=== PATIENT | female | born 1960 | race African-American/Black ===

== ENCOUNTER 2019-05-24 12:41 | Outpatient (CLI) | payer OTHER, SELFPAY ==
[2019-05-24 13:58] LABS: Blood Urea Nitrogen 15 mg/dL (7-17); Calcium 8.5 mg/dL (8.4-10.2); Carbon Dioxide 26 mmol/L (22-30); Chloride 96 mmol/L (98-107); Estimated Glomerular Filt Rate > 60; Glucose 454 mg/dL (65-105); Magnesium 1.8 mg/dL (1.6-2.3); Potassium 3.8 mmol/L (3.4-5.0); Sodium 131 mmol/L (137-145)
== END 2019-05-24 12:42 | disposition home or self-care (01) ==
PROVIDERS: PCP Internal Medicine Infectious Disease; Visit Provider Internal Medicine Cardiovascular Disease
DX: R60.0 Localized edema (principal)
CPT/HCPCS: 36415; 80048; 83735

== ENCOUNTER 2019-07-05 14:30 | Outpatient (RCR) | payer OTHER, SELFPAY ==
--- NOTE | 2019-04-13 08:25 | PTOPEVAL ---
Thank you for referring this patient to [facility]. Please review, sign, date and return this plan of care SHIRA. Pt referred to therapy due to knee pain and decreased functional mobility. She demonstrates significant limitations with transfers, ambulation, endurance and LE strength. She requires additional skilled therapy to address impairments. Cont PT 2x/wk x 8 wk to improve function and achieve goals. I agree with and certify that the following plan of care is medically necessary. Referring Physician Date Attending Provider: PHYSICIAN NOT ON STAFF Referring Provider: Dr. Bharath Latham MD *PT Outpatient Evaluation Start: 04/12/19 14:16 Freq: Status: Active Protocol: Document 04/12/19 14:13 CAP (Rec: 04/12/19 15:25 CAP [id number]) Therapy Assessment Status Assessment Status Assessment Status Evaluation Outpatient Past Medical History Cardiovascular History Hx Hypertension Yes Respiratory History Hx Chronic Obstructive Pulmonary Disease Yes (COPD) Hx Sleep Apnea Yes Gastrointestinal History Hx Other Gastrointestinal Disorders Yes: morbid obesity Musculoskeletal History Hx Back Injury Yes Hx Back Pain Yes Endocrine History Hx Diabetes Yes Pain History Has Past Pain Affected Your Daily Life Yes History of Long-Term Prescription Pain Yes Medication Use (Opiates) Other History Hx Other Medical Conditions Yes: edema of LE Evaluation Information Problem Diagnosis left knee pain Onset 12/17 Cause fall Subjective Information Pt had a fall getting out of Query Text:As Reported By Patient/ bed 12/17. She went to stand Family and the left leg gave out. She hit her left knee/left hip and right shoulder. She was able to pull up in the bathroom using th grab bars. She has SBQC and a basic power wc for her mobility. Pt lived in a NH for 3 years and then transitioned to an apt. Her last bout of therapy was ~ 8 years ago. She has hired assistance to help with ADL's and IADL's She walks very limited distances in her apt with quad cane 3x/wk with most of her mobility with the power wc. Diagnostic Tests X-Rays For This Problem Yes Previous Treatments Previous Treatments For This Problem no Prior Level of Function Activity Level (Last 3
--- NOTE | 2019-05-17 16:38 | PTOPEVAL ---
Thank you for referring this patient to [facility]. Please review, sign, date and return this plan of care SHIRA. Pt has been seen for 7 therapy visits to address impairments related to her knee, muscle weakness and decreased ability to perform functional mobility activities. She demonstrates limited progress towards therapy goals. Recommend additional PT 2x/wk x 4 wk. I agree with and certify that the following plan of care is medically necessary. Referring Physician Date Attending Provider: PHYSICIAN NOT ON STAFF Referring Provider: Dr. Bharath Latham MD *PT Outpatient Re-Evaluation Start: 04/12/19 14:16 Freq: Status: Active Protocol: Document 05/17/19 15:50 CAP (Rec: 05/17/19 16:26 CAP [id number]) Therapy Assessment Status Assessment Status Assessment Status Re-evaluation Evaluation Information Problem Diagnosis left knee pain Onset 12/17 Cause fall Additional Evaluation Detail Pt had a fall getting out of bed 12/17. She went to stand and the left leg gave out. She hit her left knee/left hip and right shoulder. She was able to pull up in the bathroom using th grab bars. She has SBQC and a basic power wc for her mobility. She has hired assistance to help with ADL's and IADL's She walks very limited distances in her apt with quad cane 3x/wk with most of her mobility with the power wc. Subjective Information She cont to c/o damian knee pain. Query Text:As Reported By Patient/ She does feel like she is Family moving her legs and arms better with her exercise. She is performing her HEP in the shower 2x/day for 5 reps each. She is not able to yony walking at home. She is able to yony very limited standing at home. She performs some limited walking around her bed using the bed to lean on. Pain Assessment Timing of Pain Assessment Timing of Pain Assessment Re-assessment Pain Scale Pain Scale Used Numeric (1 - 10) Self Report Pain Assessment Left Knee(s) Reported Pain Level 8 Pain Description Aching,Sharp,Stabbing Pain Frequency Chronic Lowest Pain Intensity 7
--- NOTE | 2019-06-05 09:38 | PCPTNOTE ---
Patient called & cancelled scheduled appointment this date due to being sick.
--- NOTE | 2019-06-08 14:57 | PCPTNOTE ---
Patient did not show up for scheduled appointment this date.
--- NOTE | 2019-06-16 15:25 | PCPTNOTE ---
Patient called & cancelled scheduled appointment this date due to no ride.
--- NOTE | 2019-07-05 15:19 | PTOPEVAL ---
Thank you for referring Nicol Ramesh to [facility]. Please review, sign, date and return this plan of care SHIRA. Pt has received 15 therapy visits to address chronic knee pain and decreased functional mobility. She demonstrates limited progress with functional activities of walking,standing, and LE strength. Limited performance with HEP or walking or standing activities. She has reached maximal potential with skilled therapy at this time. DC skilled PT at this time. I agree with and certify that the following plan of care is medically necessary. Referring Physician Date Referring Provider: Dr. Bharath Latham MD Discharge Assessment *PT Outpatient Evaluation Start: 04/12/19 14:16 Freq: Status: Active Protocol: Document 07/05/19 13:58 CAP (Rec: 07/05/19 14:38 CAP [id number]) Therapy Assessment Status Assessment Status Re-evaluation Evaluation Information Problem Diagnosis left knee pain Onset 12/17 Cause fall Additional Evaluation Detail Pt had a fall getting out of bed 12/17. She went to stand and the left leg gave out. She hit her left knee/left hip and right shoulder. She was able to pull up in the bathroom using th grab bars. She has SBQC and a basic power wc for her mobility. She has hired assistance to help with ADL's and IADL's Subjective Information She reports her right post/ Query Text:As Reported By Patient/ lateral knee remains painful. Family She has a MD appt next week. She reports min changes with knee pain. She is performing her HEP 2 x 10 reps 2-3x/day. She does feel like she can stand longer in the shower. She is walking from her bed to bathroom door with the quad cane 3x's last week. She not been performing any standing at home for exercise or daily activities. Pain Assessment Timing of Pain Assessment Timing of Pain Assessment Re-assessment Pain Scale Pain Scale Used Numeric (1 - 10) Self Report Pain Assessment Left Knee(s) Reported Pain Level 6 Pain Description Aching,Tightness Pain Frequency Chronic,Continuous Lowest Pain Intensity 6 Greatest Pain Intensity 9
== END 2019-07-06 07:56 | disposition home or self-care (01) ==
LOC: ANHPT 14:30
PROVIDERS: PCP Internal Medicine Infectious Disease
DX: M48.062 Spinal stenosis, lumbar region with neurogenic claudication (principal); M25.562 Pain in left knee
CPT/HCPCS: 97110; 97112; 97116; 97163; 97530

== ENCOUNTER 2019-07-12 13:26 | Outpatient (CLI) | payer OTHER, SELFPAY ==
[2019-07-12 13:48] LABS: Basophils Percent Auto 0.3 % (0.2-1.2); Eosinophils Absolute Auto 0.2 K/mm3 (0-0.3); Eosinophils Percent Auto 2.3 % (0-4.4); Hematocrit 41.8 % (37.0-47.0); Hemoglobin 12.9 g/dL (12.0-15.0); Immature Granulocyte Absolute 0.05 K/mm3 (0.00-0.031); Immature Granulocyte Percent A 0.5 % (0-0.5); Lymphocytes Absolute Auto 2.12 K/mm3 (0.9-3.2); Lymphocytes Percent Auto 22.4 % (18.3-44.2); Mean Corpuscular HGB Conc 30.9 g/dl (32-36); Mean Corpuscular Hemoglobin 27.2 pg (26-34); Mean Corpuscular Volume 88.2 fl (80-100); Mean Platelet Volume 10.6 fl (7.4-10.4); Monocytes Absolute Auto 0.4 K/mm3 (0.1-0.6); Monocytes Percent Auto 3.9 % (2.6-8.5); Neutrophils Absolute Auto 6.7 K/mm3 (1.3-6.7); Neutrophils Percent Auto 70.6 % (45.5-73.1); Platelet Count Result 278 k/mm3 (150-375); Red Blood Count 4.74 M/mm3 (4.2-5.4); Red Cell Distribution Width 13.5 % (11.5-14.5); White Blood Count 9.5 K/mm3 (4.5-10.0)
[2019-07-12 13:59] LABS: Alanine Aminotransferase 16 U/L (4-35); Albumin Level 3.8 g/dL (3.5-5.1); Alkaline Phosphatase 212 U/L (38-126); Aspartate Amino Transferase 15 U/L (14-36); Bilirubin,Total 0.2 mg/dL (0.2-1.3); Blood Urea Nitrogen 18 mg/dL (7-17); Calcium 9.1 mg/dL (8.4-10.2); Carbon Dioxide 24 mmol/L (22-30); Chloride 103 mmol/L (98-107); Estimated Glomerular Filt Rate > 60; Glucose 367 mg/dL (65-105); Magnesium 1.8 mg/dL (1.6-2.3); Potassium 4.6 mmol/L (3.4-5.0); Sodium 135 mmol/L (137-145)
== END 2019-07-12 13:27 | disposition home or self-care (01) ==
PROVIDERS: PCP Internal Medicine Infectious Disease; Visit Provider Internal Medicine Cardiovascular Disease
DX: E78.5 Hyperlipidemia, unspecified (principal); R60.9 Edema, unspecified
CPT/HCPCS: 36415; 80053; 83735; 85025

== ENCOUNTER 2019-07-31 13:08 | Outpatient (CLI) | payer OTHER, SELFPAY ==
--- NOTE | ~2019-07-31 | MR_ITS ---
EXAMINATION: MR knee LT wo con DATE: 07/31/2019 15:32 INDICATION: Derangement of collateral ligament of left knee. TECHNIQUE: Magnetic resonance imaging (MRI) of the left knee was performed without intravenous contra st. Sequences included axial PD-weighted FS FSE, coronal PD-weighted FSE and PD-weighted FS FSE, sagi ttal PD-weighted FSE, and sagittal T2-weighted FS FSE. COMPARISON: None. FINDINGS: Medial compartment: There is a complex tear involving the body and posterior horn of medial meniscus. There is extensive cartilage loss of femoral condyle and tibial condyle involving including full-thickness cartilage los s of the central and medial articular services with moderate subchondral edema-like marrow signal int ensity. Osteophytes are noted. Lateral compartment: There is a radial tear of body of lateral meniscus. There is extensive full-thickness and deep partia l thickness cartilage loss of tibial condyle, worst medially with moderate subchondral edema-like mar row signal intensity. There is deep partial thickness cartilage loss of femoral condyle involving the medial, central, and lateral articular surfaces with moderate subchondral edema-like marrow signal i ntensity. Osteophytes are noted. Patellofemoral compartment: There is full-thickness cartilage loss involving patellar medial facet, median ridge, and lateral fac et with moderate subchondral edema-like marrow signal intensity. There are areas of full-thickness ca rtilage loss of medial, central, and lateral trochlea with moderate subchondral edema-like marrow sig nal intensity. Osteophytes are noted. Ligaments and tendons: The anterior and posterior cruciate ligaments are intact. There is edema around medial collateral lig ament, consistent with sprain. There is a partial tear of fibular collateral ligament. There is mild patellar tendinopathy. There is edema of popliteus muscle, consistent with strain. Fluid: There is a moderate-sized knee joint effusion with synovitis. There is a small Merino's cyst. There is mild prepatellar and superficial infrapatellar bursitis. There is a mildly enlarged lymph node poste rior to distal femur. IMPRESSION: 1. Severe tricompartmental chondrosis. 2. Tears of medial and lateral menisci. 3. Moderate-sized knee joint effusion. 4. Small Merino's cyst. 5. Mildly enlarged popliteal lymph node, likely reactive. 6. Grade 2 sprain of fibular collateral ligament. Grade 1 sprain of medial collateral ligament. 7. Mild popliteus muscle strain (grade 1). Reviewed, dictated and finalized at location A. IMPRESSION: 1. Severe tricompartmental chondrosis. 2. Tears of medial and lateral menisci. 3. Moderate-sized knee joint effusion. 4. Small Merino's cyst. 5. Mildly enlarged popliteal lymph node, likely reactive. 6. Grade 2 sprain of fibular collateral ligament. Grade 1 sprain of medial arabella ateral ligament. 7. Mild popliteus muscle strain (grade 1).
== END 2019-07-31 13:09 | disposition home or self-care (01) ==
PROVIDERS: PCP Internal Medicine Infectious Disease
DX: M71.22 Synovial cyst of popliteal space [Baker], left knee (principal); S83.242A Other tear of medial meniscus, current injury, left knee, initial encounter; S83.282A Other tear of lateral meniscus, current injury, left knee, initial encounter; X58.XXXA Exposure to other specified factors, initial encounter; M25.462 Effusion, left knee
CPT/HCPCS: 73721

== ENCOUNTER 2019-08-25 13:46 | Outpatient (CLI) | payer OTHER, SELFPAY ==
--- NOTE | ~2019-08-25 | XR_ITS ---
XR elbow RT min 3V EXAM DATE: 08/25/2019 14:23 INDICATION: No known recent injury provided at this time. Pain of the right elbow. Fell 7 months ago . TECHNIQUE: Right elbow frontal, lateral with flexion, and oblique projections obtained and reviewed. Comparison is made to prior examination from 12/31/2018. FINDINGS: Right elbow anterior humeral line intact. There are no acute fractures or dislocations jen ntified. There is no subcutaneous gas. The soft tissue is unremarkable. There are no radiopaque f oreign bodies. There is no significant interval change. IMPRESSION: 1. Unremarkable right elbow exam. Reviewed, dictated and finalized at location B.
--- NOTE | ~2019-08-25 | XR_ITS ---
XR elbow LT min 3V DATE: 08/25/2019 14:23 INDICATION: Fall 7 months ago. Generalized left elbow pain. TECHNIQUE: 4 views COMPARISON: None FINDINGS: There is mild spurring of the coronoid process. No fracture or dislocation or joint effusio n. No periosteal reaction or bone destruction. IMPRESSION: No fracture or dislocation Reviewed, dictated and finalized at location A. IMPRESSION: No fracture or dislocation
--- NOTE | ~2019-08-25 | XR_ITS ---
EXAMINATION: XR wrist LT min 3V, XR hand LT min 3V EXAM DATE: 08/25/2019 14:23 INDICATION: No known recent injury provided at this time. Pain of the bilateral hand, wrist. TECHNIQUE: Left hand frontal, lateral and oblique projections obtained and reviewed. Left wrist fron dez, frontal with ulnar deviation, oblique and lateral projections obtained and reviewed. There is n o prior study for comparison. FINDINGS: Left metacarpal bones are unremarkable. Left wrist scapholunate joint space is maintained . There is mild left triscaphe, carpometacarpal and polyarticular interphalangeal joint primary osteo arthritis. There are no acute fractures or dislocations identified. There is no subcutaneous gas. T he soft tissue is unremarkable. There are no radiopaque foreign bodies. 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 Reviewed, dictated and finalized at location B. 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
--- NOTE | ~2019-08-25 | XR_ITS ---
EXAMINATION: XR hand RT min 3V, XR wrist RT min 3V EXAM DATE: 08/25/2019 14:24 INDICATION: Bilateral hand and wrist pain. No recent injury. TECHNIQUE: Right hand frontal, lateral and oblique projections obtained and reviewed. Right wrist fro ntal, frontal with ulnar deviation, oblique and lateral projections obtained and reviewed. There is no prior study for comparison. FINDINGS: Right metacarpal bones are unremarkable. Right wrist scapholunate joint space is maintain ed. There is mild to moderate 1st metacarpophalangeal joint primary osteoarthritis. There is mild tr iscaphe, polyarticular interphalangeal primary osteoarthritis. There are no acute fractures or disloc ations identified. There is no subcutaneous gas. The soft tissue is unremarkable. There are no ra diopaque foreign bodies. IMPRESSION: Polyarticular right hand and wrist osteoarthritis, mild to moderate at the 1st CMC joint. Reviewed, dictated and finalized at location B. IMPRESSION: Polyarticular right hand and wrist osteoarthritis, mild to moderate at the 1st CMC joint.
== END 2019-08-25 13:47 | disposition home or self-care (01) ==
PROVIDERS: PCP Internal Medicine Infectious Disease; Visit Provider Internal Medicine Infectious Disease
DX: M25.522 Pain in left elbow (principal); M25.521 Pain in right elbow; M19.032 Primary osteoarthritis, left wrist; M19.042 Primary osteoarthritis, left hand; M19.031 Primary osteoarthritis, right wrist; M19.041 Primary osteoarthritis, right hand
CPT/HCPCS: 73080; 73110; 73130

== ENCOUNTER 2019-09-06 13:30 | Outpatient (RCR) | payer OTHER, SELFPAY ==
--- NOTE | 2019-07-27 14:51 | OTOPEVAL ---
OCCUPATIONAL THERAPY INITIAL EVALUATION 07/27/2019 Thank you for referring Nicol Ramesh to [facility]. Skilled OT indicated 1x/week for 5 weeks for deficits outlined below. Please review, sign, date and return this plan of care SHIRA. I agree with and certify that the following plan of care is medically necessary. Referring Physician Date Referring Provider: Bharath Latham, *OT Outpatient Evaluation Start: 07/27/19 13:40 Therapy Assessment Status Assessment Status Assessment Status Evaluation Outpatient Past Medical History Cardiovascular History Hx Hypertension Yes Respiratory History Hx Chronic Obstructive Pulmonary Disease Yes (COPD) Hx Sleep Apnea Yes Gastrointestinal History Hx Other Gastrointestinal Disorders Yes: morbid obesity Musculoskeletal History Hx Back Injury Yes Hx Back Pain Yes Hx Rheumatoid Arthritis Yes Endocrine History Hx Diabetes Yes Pain History Has Past Pain Affected Your Daily Life Yes History of Long-Term Prescription Pain Yes Medication Use (Opiates) Other History Hx Other Medical Conditions Yes: edema of LE Evaluation Information Problem Diagnosis Bilateral hand pain Subjective Information Patient sustained a fall Oct Query Text:As Reported By Patient/ 2019 and she believes this is Family when her hand and wrist pain began. She reports the pain has progressively gotten worse . She notes having difficulty opening bottles, holding items , and gripping a wash rag during bathing. Pain Assessment Timing of Pain Assessment Timing of Pain Assessment Assessment Pain Scale Pain Scale Used Numeric (1 - 10) Self Report Pain Assessment Bilateral Hand(s) Reported Pain Level 6 Pain Description Aching,Dull,Throbbing Pain Radiation Left Elbow,Right Elbow Lowest Pain Intensity 6 Greatest Pain Intensity 10 Pain Score Pain Score 6: Self Report Upper Extremity Range of Motion Elbow/Forearm Range of Motion Bilateral Reason Not Measured WFL/Left,WFL/Right Wrist Range of Motion Bilateral Wrist Flexion - Active 40 Wrist Extension - Active 60 Wrist Radial Deviation - Active 15 Wrist Ulnar Deviation - Active 30 Finger Range of Motion Bilateral Index Finger Tip to Distal Palmar Crease 4 - Active Middle Finger Tip to Distal Palmar 3 Crease - Active Ring Finger Tip to Distal Palmar Crease 3 - Active Little Finger Tip to Distal Palmar 2 Crease - Active
--- NOTE | 2019-09-06 14:42 | OTOPEVAL ---
Addendum entered by Darrell Hubbard, FELICIA/Raisa, ALEJANDRA 09/06/19 16:15: Made edit to evaluation information on this note. Please use more recent note. Original Note: OCCUPATIONAL THERAPY RE-EVALUATION REPORT 09/06/2019 Thank you for referring iNcol Ramesh to [facility]. Continued skilled OT indicated 2x/week for 4 weeks. Please review, sign, date and return this plan of care SHIRA. I agree with and certify that the following plan of care is medically necessary. Referring Physician Date Referring Provider: Bharath Latham, MD *OT Outpatient Re-Evaluation Evaluation Information Problem Diagnosis Bilateral hand pain Additional Evaluation Detail Nicol has been participating in outpatient OT 1x/week since for treatment of bilateral hand and wrist pain. She recently had bilateral hand and wrist x-rays, which reveal mild to moderate polyarticular hand and wrist arthritis. No signs of fracture or dislocations. Subjective Information Patient reports since Query Text:As Reported By Patient/ beginning OT she has noticed a Family marked decrease in swelling in bilateral hands. She also reports increase in AROM of bilateral hands which has allowed her to open and close her hands with ease . She wears compression gloves daily and compression sleeves around her wrists and forearms about every other day. She notes having difficulty opening bottles, holding items , and gripping a wash rag during bathing. Pain Assessment Timing of Pain Assessment Timing of Pain Assessment Re-assessment Pain Scale Pain Scale Used Numeric (1 - 10) Self Report Pain Assessment Left Hand(s) Reported Pain Level 6 Pain Description Aching,Throbbing Pain Radiation Left Elbow Pain Frequency Chronic,Continuous Lowest Pain Intensity 5 Greatest Pain Intensity 9 Right Hand(s) Reported Pain Level 6 Pain Description Aching,Throbbing Pain Radiation Right Elbow Pain Frequency Chronic,Continuous Lowest Pain Intensity 5 Greatest Pain Intensity 9 Pain Score Pain Score 6,6: Self Report Upper Extremity Range of Motion Finger Range of Mo
--- NOTE | 2019-09-06 16:16 | OTOPEVAL ---
OCCUPATIONAL THERAPY RE-EVALUATION REPORT 09/06/2019 Thank you for referring Nicol Ramesh to [facility]. Continued skilled OT indicated 2x/week for 4 weeks. Please review, sign, date and return this plan of care SHIRA. I agree with and certify that the following plan of care is medically necessary. Referring Physician Date Referring Provider: Bharath Latham, *OT Outpatient Re-Evaluation Evaluation Information Problem Diagnosis Bilateral hand pain Additional Evaluation Detail Nicol has been participating in outpatient OT 1x/week since for treatment of bilateral hand and wrist pain. She recently had bilateral hand and wrist x-rays, which reveal mild to moderate polyarticular hand and wrist arthritis. No signs of fracture or dislocations. Subjective Information Patient reports since Query Text:As Reported By Patient/ beginning OT she has noticed a Family marked decrease in swelling in bilateral hands. She also reports increase in AROM of bilateral hands which has allowed her to open and close her hands with ease . She wears compression gloves daily and compression sleeves around her wrists and forearms about every other day. She notes having difficulty opening bottles, holding items , and gripping a wash rag during bathing. Pain Assessment Timing of Pain Assessment Timing of Pain Assessment Re-assessment Pain Scale Pain Scale Used Numeric (1 - 10) Self Report Pain Assessment Left Hand(s) Reported Pain Level 6 Pain Description Aching,Throbbing Pain Radiation Left Elbow Pain Frequency Chronic,Continuous Lowest Pain Intensity 5 Greatest Pain Intensity 9 Right Hand(s) Reported Pain Level 6 Pain Description Aching,Throbbing Pain Radiation Right Elbow Pain Frequency Chronic,Continuous Lowest Pain Intensity 5 Greatest Pain Intensity 9 Pain Score Pain Score 6,6: Self Report Upper Extremity Range of Motion Wrist Range of Motion Left Wrist Flexion - Active 68 Wrist Extension - Active 70 Wrist Range of Motion Comments Wrist
--- NOTE | 2019-10-25 09:55 | PCOTNOTE ---
This treatment is being continued on visit number [id number]. Please see documentation on both accounts to view progress. Completed interventions, outcomes, and problems have been marked as Inactive to facilitate the copying of the Care plan routine for recurring accounts.
== END 2019-10-24 12:35 | disposition home or self-care (01) ==
LOC: ANHOT 13:30
PROVIDERS: PCP Internal Medicine Infectious Disease; Visit Provider Internal Medicine Infectious Disease
DX: M79.641 Pain in right hand (principal); M79.642 Pain in left hand; Z74.09 Other reduced mobility
CPT/HCPCS: 97018; 97035; 97110; 97140; 97165

== ENCOUNTER 2019-10-11 14:37 | Outpatient (CLI) | payer OTHER, SELFPAY ==
[2019-10-11 13:08] LABS: Basophils Percent Auto 0.4 % (0.2-1.2); Eosinophils Absolute Auto 0.2 K/mm3 (0-0.3); Eosinophils Percent Auto 2.3 % (0-4.4); Hematocrit 42.9 % (37.0-47.0); Hemoglobin 13.5 g/dL (12.0-15.0); Immature Granulocyte Absolute 0.02 K/mm3 (0.00-0.031); Immature Granulocyte Percent A 0.3 % (0-0.5); Lymphocytes Absolute Auto 2.31 K/mm3 (0.9-3.2); Lymphocytes Percent Auto 29.2 % (18.3-44.2); Mean Corpuscular HGB Conc 31.5 g/dl (32-36); Mean Corpuscular Hemoglobin 26.5 pg (26-34); Mean Corpuscular Volume 84.3 fl (80-100); Mean Platelet Volume 10.6 fl (7.4-10.4); Monocytes Absolute Auto 0.3 K/mm3 (0.1-0.6); Monocytes Percent Auto 3.9 % (2.6-8.5); Neutrophils Absolute Auto 5.1 K/mm3 (1.3-6.7); Neutrophils Percent Auto 63.9 % (45.5-73.1); Platelet Count Result 277 k/mm3 (150-375); Red Blood Count 5.09 M/mm3 (4.2-5.4); Red Cell Distribution Width 12.4 % (11.5-14.5); White Blood Count 7.9 K/mm3 (4.5-10.0)
[2019-10-11 13:22] LABS: Alanine Aminotransferase 19 U/L (4-35); Albumin Level 3.6 g/dL (3.5-5.1); Alkaline Phosphatase 135 U/L (38-126); Anion Gap 8 mmol/L (8-16); Aspartate Amino Transferase 19 U/L (14-36); Bilirubin,Total 0.4 mg/dL (0.2-1.3); Blood Urea Nitrogen 14 mg/dL (7-17); Calcium 8.8 mg/dL (8.4-10.2); Carbon Dioxide 28 mmol/L (22-30); Chloride 99 mmol/L (98-107); Cholesterol 230 mg/dL (0-200); Estimated Glomerular Filt Rate > 60; Glucose 211 mg/dL (65-105); HDL Direct 47 mg/dL; Potassium 4.2 mmol/L (3.4-5.0); Sodium 135 mmol/L (137-145); Triglycerides 132 mg/dL (<150)
[2019-10-11 13:32] LABS: LDL Cholesterol Direct 129 mg/dL
[2019-10-11 15:15] LABS: Alanine Aminotransferase 20 U/L (4-35); Albumin Level 3.7 g/dL (3.5-5.1); Alkaline Phosphatase 140 U/L (38-126); Anion Gap 8 mmol/L (8-16); Aspartate Amino Transferase 20 U/L (14-36); Bilirubin,Total 0.5 mg/dL (0.2-1.3); Blood Urea Nitrogen 14 mg/dL (7-17); Calcium 8.9 mg/dL (8.4-10.2); Carbon Dioxide 27 mmol/L (22-30); Chloride 99 mmol/L (98-107); Cholesterol 231 mg/dL (0-200); Estimated Glomerular Filt Rate > 60; Glucose 212 mg/dL (65-105); HDL Direct 47 mg/dL; Magnesium 1.7 mg/dL (1.6-2.3); Potassium 4.1 mmol/L (3.4-5.0); Sodium 134 mmol/L (137-145); Triglycerides 135 mg/dL (<150)
[2019-10-11 15:26] LABS: LDL Cholesterol Direct 127 mg/dL
[2019-10-11 15:42] LABS: Creatinine Urine 147.6 mg/dL
[2019-10-11 15:46] LABS: MALB Creatinine Ratio 21.3 mg/g (0-30); Microalbumin Urine Random 31.4 mg/L (0-16.7)
== END 2019-10-11 14:38 | disposition home or self-care (01) ==
PROVIDERS: Internal Medicine Cardiovascular Disease; PCP Internal Medicine Infectious Disease
DX: E78.5 Hyperlipidemia, unspecified (principal); E11.9 Type 2 diabetes mellitus without complications
CPT/HCPCS: 36415; 80053; 80061; 82043; 82607; 83735; 84443; 85025

== ENCOUNTER 2019-10-25 09:36 | Outpatient (RCR) | payer OTHER, SELFPAY ==
--- NOTE | 2019-10-25 09:57 | PCOTNOTE ---
The treatment documented on this account is a continuation of the treatment documented on visit number [id number]. Please see documentation on both accounts to view progress. The Plan of Care has been transitioned and updated within the new V#. I have addressed and agree with the discipline specific Problems, Interventions, and Goals for the current certification period. Completed interventions, outcomes, and problems have been marked as Inactive to facilitate the copying of the Care plan routine for recurring accounts.
--- NOTE | 2019-11-15 14:14 | OTOPEVAL ---
OCCUPATIONAL THERAPY RE-EVALUATION AND D/C NOTE 11/15/2019 Thank you for referring Nicol Ramesh to [facility].?Nicol has made progress with functional ROM and strength as well as improved functional use of bilateral hands. She is currently independent with HEP. No further skilled OT recommended at this time. Please review, sign, date and return this D/C Note SHIRA. I agree with and certify that the following plan of care is medically necessary. Referring Physician Date Referring Provider: Bharath Latham, *OT Outpatient Evaluation Evaluation Information Problem Diagnosis Bilateral hand pain Additional Evaluation Detail Nicol has been participating in outpatient OT for treatment of bilateral hand and wrist arthritis. Subjective Information Patient reports she has Query Text:As Reported By Patient/ noticed a marked decrease in Family swelling in bilateral hands and that her pain is cut in half . She is able to use her hands for longer periods of time without having to stop due to pain. She wears compression gloves and compression sleeves around her wrists and forearms about every other day . Functionally she reports being able to hold a wash cloth has improved from 20% ability to 60%. She also notes improved abilities to lift pots/pans. Continues to note difficulties with opening water bottles, jars, etc. Pain Assessment Timing of Pain Assessment Timing of Pain Assessment Re-assessment Pain Scale Pain Scale Used Numeric (1 - 10) Self Report Pain Assessment Bilateral Hand(s) Reported Pain Level 5 Pain Description Aching,Throbbing Pain Frequency Continuous Lowest Pain Intensity 5 Greatest Pain Intensity 10 Pain Score Pain Score 5: Self Report Additional Pain Score Comments Patient reports pain levels in her hands at a 5-7/10 on a daily basis. Upper Extremity Range of Motion Wrist Range of Motion Right Wrist Flexion - Active 65 Wrist Extension - Active 65 Wrist Range of Motion Comments Right wrist AROM returned to normal limits. Patient does report ulnar sided pain with AROM of the w
== END 2019-11-16 08:23 | disposition home or self-care (01) ==
LOC: ANHOT 09:36
PROVIDERS: PCP Internal Medicine Infectious Disease; Visit Provider Internal Medicine Infectious Disease
DX: M79.641 Pain in right hand (principal); M79.642 Pain in left hand; Z74.09 Other reduced mobility
CPT/HCPCS: 97018; 97110; 97140

== ENCOUNTER 2019-11-03 13:27 | Outpatient (CLI) | payer OTHER, SELFPAY ==
[2019-11-03 14:20] LABS: Add Urine Microscopic? YES; Appearance Urine Clear (Clear); Bilirubin Urine Negative (Negative); Blood Urine Negative (Negative); Color Urine Straw (Yellow); Glucose Urine UA 3+ mg/dL (Negative); Ketones Urine Negative (Negative); Leukocyte Esterase Ur Negative LEU/UL (NEGATIVE); Nitrate Urine Negative (Negative); Protein Urine Negative (Negative); RBC Urine 0-2 /hpf (0-2); Squamous Epithelial Cell Urine Moderate /hpf (Few); Urobilinogen Urine Negative mg/dL (<2.0); WBC Urine 0-3 /hpf (0-3)
[2019-11-03 15:15] LABS: Basophils Percent Auto 0.3 % (0.2-1.2); Eosinophils Absolute Auto 0.1 K/mm3 (0-0.3); Hematocrit 44.4 % (37.0-47.0); Hemoglobin 13.7 g/dL (12.0-15.0); Immature Granulocyte Absolute 0.03 K/mm3 (0.00-0.031); Immature Granulocyte Percent A 0.5 % (0-0.5); Lymphocytes Absolute Auto 1.84 K/mm3 (0.9-3.2); Lymphocytes Percent Auto 27.8 % (18.3-44.2); Mean Corpuscular HGB Conc 30.9 g/dl (32-36); Mean Corpuscular Hemoglobin 26.1 pg (26-34); Mean Corpuscular Volume 84.6 fl (80-100); Mean Platelet Volume 10.6 fl (7.4-10.4); Monocytes Absolute Auto 0.3 K/mm3 (0.1-0.6); Monocytes Percent Auto 3.9 % (2.6-8.5); Neutrophils Absolute Auto 4.3 K/mm3 (1.3-6.7); Neutrophils Percent Auto 65.5 % (45.5-73.1); Platelet Count Result 285 k/mm3 (150-375); Red Blood Count 5.25 M/mm3 (4.2-5.4); Red Cell Distribution Width 12.4 % (11.5-14.5); White Blood Count 6.6 K/mm3 (4.5-10.0)
[2019-11-03 16:01] LABS: Erythrocyte Sedimentation Rate 7 mm/hr (0-20)
[2019-11-03 17:18] LABS: Potassium 4.1 mmol/L (3.4-5.0)
[2019-11-03 17:25] LABS: Alanine Aminotransferase 17 U/L (4-35); Albumin Level 3.6 g/dL (3.5-5.1); Alkaline Phosphatase 167 U/L (38-126); Anion Gap 6 mmol/L (8-16); Aspartate Amino Transferase 18 U/L (14-36); Bilirubin,Total 0.5 mg/dL (0.2-1.3); Blood Urea Nitrogen 15 mg/dL (7-17); CRP 2.7 mg/dL (<1.0); Calcium 8.8 mg/dL (8.4-10.2); Carbon Dioxide 32 mmol/L (22-30); Chloride 97 mmol/L (98-107); Estimated Glomerular Filt Rate > 60; Glucose 233 mg/dL (65-105); Sodium 135 mmol/L (137-145)
== END 2019-11-03 13:28 | disposition home or self-care (01) ==
PROVIDERS: PCP Internal Medicine Infectious Disease; Referring Provider Internal Medicine Rheumatology
DX: N39.41 Urge incontinence (principal)
CPT/HCPCS: 36415; 80053; 81001; 85025; 85652; 86140

== ENCOUNTER 2020-01-09 12:30 | Outpatient (RCR) | payer OTHER, SELFPAY ==
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
--- NOTE | 2020-01-09 14:01 | PTOPEVAL ---
PHYSICAL THERAPY DISCHARGE SUMMARY Thank you for referring Nicol Ramesh to [facility].? Nicol was seen in physical therapy?x 10 visits. Nicol enjoyed the aquatic environment for exercise but there was little carryover to land base activity. Most goals were not met. She has upcoming medical appointments. It was suggested that once she has a time frame for L TKA to return to PT for further aquatic PT prior to TKA. I agree with Nicol's discharge from PT. Referring Physician Date Admitting Provider: Attending Provider: PHYSICIAN NOT ON STAFF Referring Provider: *PT Outpatient Evaluation Start: 11/28/19 12:48 Freq: Status: Complete Protocol: Document 01/09/20 12:39 PACO (Rec: 01/09/20 13:41 PACO [id number]) Therapy Assessment Status Assessment Status Assessment Status Discharge Evaluation Information Problem Subjective Information Nicol reports that she enjoyed Query Text:As Reported By Patient/ the pool - easier for her to Family do the exercises and when she had pain could relax easier. Activities outside of the pool have basically remained the same. Been doing HEP with red theraband. Pain Assessment Timing of Pain Assessment Timing of Pain Assessment Re-assessment Pain Scale Pain Scale Used Numeric (1 - 10) Self Report Pain Assessment Right Knee(s) Reported Pain Level 6 Lowest Pain Intensity 5 Greatest Pain Intensity 8 Left Knee(s) Reported Pain Level 8 Lowest Pain Intensity 7 Greatest Pain Intensity 10 Pain Score Pain Score 6,8: Self Report Interventions Used Interventions Used By Clinicians Exercise Lower Extremity Range of Motion Knee Range of Motion Left Knee Flexion Range of Motion - Passive 93 Knee Extension Range of Motion - Passive 18 Lower Extremity Muscle Strength Testing Hip Strength Bilateral Hip Strength Comments L hip flexion 3+ Knee Strength Left Knee Flexion Strength 4 Good Knee Extension Strength 3 Fair Transfer Assessment Car Transfer Assessment Ambulation Assistive Devices Cane, Small Base Quad Car Transfer Technique few steps Car Transfer Ability Standby Assistance Sit to Stand Car Transfer Ability Standby Assistance Pivot Car Transfer Ability Standby Assistance Stand to Sit Car Transfer Ability Standby Assistance Factors Limiting Car Transfer Function Decreased Strength,Limited Range of Motion,Pain Car Transfer Comments increased trunk flexion - increased reaching with L UE onto car. Increase use of UE' s with bringing l
== END 2020-01-10 12:46 | disposition home or self-care (01) ==
LOC: ANHPT 12:30
PROVIDERS: PCP Internal Medicine Infectious Disease
DX: M25.561 Pain in right knee (principal); M25.562 Pain in left knee; G89.29 Other chronic pain
CPT/HCPCS: 97110; 97113; 97162; 97530

== ENCOUNTER 2020-02-08 13:49 | Outpatient (CLI) | payer OTHER, SELFPAY ==
[2020-02-08 14:30] LABS: Cholesterol 195 mg/dL (0-200); HDL Direct 40 mg/dL; Triglycerides 134 mg/dL (<150)
[2020-02-08 14:41] LABS: LDL Cholesterol Direct 123 mg/dL
== END 2020-02-08 13:50 | disposition home or self-care (01) ==
PROVIDERS: PCP Internal Medicine Infectious Disease; Visit Provider Internal Medicine Cardiovascular Disease
DX: E78.5 Hyperlipidemia, unspecified (principal)
CPT/HCPCS: 36415; 80061

== ENCOUNTER 2020-05-01 19:24 | Emergency (ER) | payer OTHER, SELFPAY ==
--- NOTE | ~2020-05-01 | XR_ITS ---
EXAMINATION:XR_[id number]_CR DATE: 05/01/2020 22:52 INDICATION: Neck pain TECHNIQUE: AP, lateral, and odontoid views of the cervical spine are provided. COMPARISON: None FINDINGS: Alignment is normal. The odontoid is intact. No fracture is identified. The vertebral body heights are normal. There is moderate loss of intervertebral disc space height at C4-5 and C6-7 and m ild loss of intervertebral disc space height throughout the remainder of the cervical spine. Small de generative osteophytes project from the anterior endplates of multiple vertebral bodies. There is mod erate to severe multilevel facet and uncovertebral joint osteoarthritis. Prevertebral soft tissues ar e normal. IMPRESSION: 1. Moderate cervical spondylosis without acute abnormality. Reviewed, dictated and finalized at location A. NOLOGY ADOPTION MANAGER
[2020-05-01 20:35] VITALS: BP 154/86; PULSE 99; RESP 16; TEMP 36.7; O2SAT 98
[2020-05-01] MEDS: IBUPROFEN 400 MG TABLET 800 MG PO (22:22)
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
[2020-05-01] MEDS: CYCLOBENZAPRINE HCL 10 MG TABLET PO (23:50)
[2020-05-01 23:51] VITALS: BP 146/102; PULSE 89; RESP 18; O2SAT 99
== END 2020-05-01 23:55 | disposition home or self-care (01) ==
PROVIDERS: Emergency Provider Emergency Medicine; PCP Internal Medicine Infectious Disease
DX: S16.1XXA Strain of muscle, fascia and tendon at neck level, initial encounter (principal); E78.5 Hyperlipidemia, unspecified; I10 Essential (primary) hypertension; E66.9 Obesity, unspecified; E13.9 Other specified diabetes mellitus without complications; M47.812 Spondylosis without myelopathy or radiculopathy, cervical region; V43.32XA Unspecified car occupant injured in collision with other type car in nontraffic accident, initial encounter
CPT/HCPCS: 72040; 99283; A9270

== ENCOUNTER 2020-05-29 10:35 | Outpatient (CLI) | payer OTHER, SELFPAY ==
[2020-05-29 11:19] LABS: Basophils Percent Auto 0.4 % (0.2-1.2); Eosinophils Absolute Auto 0.2 K/mm3 (0-0.3); Eosinophils Percent Auto 2.1 % (0-4.4); Hemoglobin 12.8 g/dL (12.0-15.0); Immature Granulocyte Absolute 0.03 K/mm3 (0.00-0.031); Immature Granulocyte Percent A 0.4 % (0-0.5); Lymphocytes Absolute Auto 2.03 K/mm3 (0.9-3.2); Lymphocytes Percent Auto 26.5 % (18.3-44.2); Mean Corpuscular HGB Conc 31.2 g/dl (32-36); Mean Corpuscular Hemoglobin 26.8 pg (26-34); Mean Corpuscular Volume 85.8 fl (80-100); Mean Platelet Volume 10.6 fl (7.4-10.4); Monocytes Absolute Auto 0.4 K/mm3 (0.1-0.6); Neutrophils Percent Auto 65.6 % (45.5-73.1); Platelet Count Result 218 k/mm3 (150-375); Red Blood Count 4.78 M/mm3 (4.2-5.4); Red Cell Distribution Width 12.3 % (11.5-14.5); White Blood Count 7.7 K/mm3 (4.5-10.0)
[2020-05-29 11:32] LABS: Alanine Aminotransferase 15 U/L (4-35); Albumin Level 3.4 g/dL (3.5-5.1); Alkaline Phosphatase 159 U/L (38-126); Anion Gap 2 mmol/L (8-16); Aspartate Amino Transferase 17 U/L (14-36); Bilirubin,Total 0.4 mg/dL (0.2-1.3); Blood Urea Nitrogen 19 mg/dL (7-17); Calcium 8.3 mg/dL (8.4-10.2); Carbon Dioxide 32 mmol/L (22-30); Chloride 100 mmol/L (98-107); Cholesterol 198 mg/dL (0-200); Estimated Glomerular Filt Rate > 60; Glucose 307 mg/dL (65-105); HDL Direct 47 mg/dL; Potassium 3.9 mmol/L (3.4-5.0); Sodium 134 mmol/L (137-145); Triglycerides 110 mg/dL (<150)
[2020-05-29 11:43] LABS: LDL Cholesterol Direct 113 mg/dL
== END 2020-05-29 10:36 | disposition home or self-care (01) ==
PROVIDERS: PCP Internal Medicine Infectious Disease; Visit Provider Internal Medicine Infectious Disease
DX: E11.9 Type 2 diabetes mellitus without complications (principal); Z51.81 Encounter for therapeutic drug level monitoring; Z79.4 Long term (current) use of insulin; I10 Essential (primary) hypertension
CPT/HCPCS: 36415; 80053; 80061; 84443; 85025

== ENCOUNTER 2020-06-21 14:00 | Outpatient (RCR) | payer OTHER, SELFPAY ==
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
--- NOTE | 2020-05-28 11:18 | PCPTNOTE ---
pt did not show for today's appt, called her and she had the wrong time for today's appt, thought it was later this afternoon. Reminded of her next appt and time for tomorrow.
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
--- NOTE | 2020-06-21 14:53 | PTOPEVAL ---
PHYSICAL THERAPY DISCHARGE 06-21-20 Refer to the clinical summary below for her status today, compared to the last reevaluation. Nicol has improved with her ROM and strength of her R shoulder and neck, but continues to report pain and headache, with decreased sleeping tolerance. Her reported functioning level with home tasks is at her prior level of functioning. Skilled PT is no longer indicated for Ms. Ramesh. She is independent with her home exercises and using heat and meds to manage her pain. Nicol wants to continue PT treatments, but will be discharged at this time. Thank you for referring Nicol Ramesh to [facility].? Please review, sign, date and return this Discharge SHIRA. I agree with and certify that the following plan of care is medically necessary. Referring Physician Date Attending Provider: Mehrdad Jon MD Document 06/21/20 13:55 LUIS ENRIQUE (Rec: 06/21/20 14:48 LUIS ENRIQUE [id number]) Assessment Status Discharge Gastrointestinal History Subjective Information Nicol reports: is having nose Query Text:As Reported By Patient/ bleeds and going to have Family catherization performed, date not set by ENT; neck is getting better- heat relaxes neck and exercises are easier; have been doing exercises at home; to see on Wednesday; She does not agree with discharge from PT services and wants to continue therapy; Pain Assessment Timing of Pain Assessment Timing of Pain Assessment Assessment Pain Scale Pain Scale Used Numeric (1 - 10) Self Report Pain Assessment Bilateral Spine, Cervical Reported Pain Level 7 Pain Description Stabbing,Throbbing Radicular Pain Location headache- dull headache all day long;strong headaches 6x in past 3 weeks Pain Frequency Chronic,Continuous Other Pain Description base of head, neck, top of shoulders; Lowest Pain Intensity 5 Greatest Pain Intensity 7 Pain Aggravating Factors Exercise/Activity Other Pain Aggravating Factors weather, hurts whenever it wants to;sleep 2-4 hours at time Additional Pain Comments with strong headaches take muscle relaxer and pain meds Pain Score Pain Score 7: Self Report Additional Pain Score Comments have had a bad week with sleeping, hurting and cannot sleep- slept 10 hours for the whole week; Oswestry self assessment functional
--- NOTE | 2020-07-16 10:57 | PCPTNOTE ---
I called pt 5 x, to discuss the new order from Dr. Quique sierra, did not speak with her about the new order to continue therapy, after she had been discharged from PT services.
== END 2020-07-30 10:56 | disposition home or self-care (01) ==
LOC: ANHPT 14:00
PROVIDERS: PCP Internal Medicine Infectious Disease
DX: M54.2 Cervicalgia (principal); S13.4XXD Sprain of ligaments of cervical spine, subsequent encounter
CPT/HCPCS: 97110; 97140; 97161

== ENCOUNTER → 2020-09-20 00:44 | Outpatient (CLI) | payer OTHER, SELFPAY ==
[2020-09-20 17:52] LABS: SARS-CoV-2 RNA PCR Negative
== END ==
PROVIDERS: PCP Internal Medicine Infectious Disease; Visit Provider Obstetrics & Gynecology
DX: Z01.812 Encounter for preprocedural laboratory examination (principal); Z20.822 Contact with and (suspected) exposure to COVID-19
CPT/HCPCS: 36415; 80048; C9803; U0003; U0005

== ENCOUNTER 2020-09-20 11:54 | Outpatient (CLI) | payer OTHER, SELFPAY ==
[2020-09-20 12:40] LABS: Anion Gap 10 mmol/L (8-16); Blood Urea Nitrogen 16 mg/dL (7-17); Calcium 9.4 mg/dL (8.4-10.2); Carbon Dioxide 30 mmol/L (22-30); Chloride 96 mmol/L (98-107); Estimated Glomerular Filt Rate > 60; Glucose 188 mg/dL (65-110); Potassium 3.5 mmol/L (3.4-5.0); Sodium 136 mmol/L (137-145)
== END 2020-09-20 11:55 | disposition home or self-care (01) ==
PROVIDERS: Anesthesiology; PCP Internal Medicine Infectious Disease; Visit Provider Obstetrics & Gynecology
DX: Z79.899 Other long term (current) drug therapy (principal); Z01.818 Encounter for other preprocedural examination
CPT/HCPCS: 36415; 80048

== ENCOUNTER 2020-09-24 00:47 | Day surgery (SDC) | payer OTHER, SELFPAY ==
[2020-09-18 15:29] VITALS: BMI 41.5
[2020-09-24 08:34] VITALS: BP 167/96; PULSE 92; RESP 16; TEMP 36.6; O2SAT 100
--- NOTE | 2020-09-24 08:40 | WPDHPUPDATE1 ---
History and Physical Update Update Date/Time: 09/24/20 08:40 History and Physical has been reviewed, including an updated exam of the patient. There are NO changes in the patient's condition. Risks, benefits, and alternatives have been discussed and questions answered. Patient agrees to proceed with procedure.
[2020-09-24] MEDS: ACETAMINOPHEN 500 MG TABLET 1000 MG PO (09:23)
[2020-09-24] MEDS: LACTATED RINGERS 1,000 ML 30 ML IV CONT ×2 (09:28→11:34)
[2020-09-24 09:34] LABS: Glucose Point of Care 332 mg/dl (65-105)
--- NOTE | 2020-09-24 10:01 | P.OP_ITS ---
Procedure Note - Detailed Date of Procedure 09/24/20 Pre-op Diagnosis menorrhagia, unwanted fertility Post-op Diagnosis same ( adhesions) Procedure Performed Laparoscopic bilateral salpingectomy, endometrial ablation with hysteroscopy, ad hesiolysis -15 minutes Surgeon Kunal Mercedes MD Anesthesia general Indications Unwanted fertility, severe menorrhagia Findings Normal appearing ovaries, fallopian tubes, uterus. Normal vulva vagina and cervix. Normal endometrium. omentum was adherent to the anterior abdominal wall below the midline - a large area approximately 5 x 5 cm Description of Procedure The patient dissect the operating room. She has prepped draped in the dorsal lithotomy position after induction of general anesthesia. The 5 mm left upper quadrant incision was made with a scalpel. A 5 mm trocar was inserted into the intra-abdominal cavity under direct visualization the scope. Pneumoperitoneum was achieved. A 5 mm left lower quadrant incision was made in the skin with a scalpel. A 5 mm trocar was inserted the intra-abdominal cavity under direct visualization the scope. A 5 mm infraumbilical incision was made with scalp on a 5 mm trocar was inserted intra-abdominal cavity under direct visualization of the scope. 15 minutes of adhesiolysis was performed using LigaSure cautery. The omentum was cauterized and cut at the abdominal wall where it was adherent. This required careful dissection with cauterization and transection The bilateral fallopian tubes were removed. The mesosalpinx of the fallopian tube was cauterized from the ovary in a stepwise fashion using LigaSure cautery. It was cut and cauterized in stepwise fashion around to the corneal part of the uterus and fallopian tube. The tube was transected there in amputated. This was done with LigaSure cautery. The tube was taken at the left lower quadrant trocar site. The contralateral side was done in identical fashion. The patient tolerated this portion of the procedure well. The incisions were closed subcuticular for Monocryl and with Dermabond. A speculum was placed in the vagina. Cervix grasped with a tenaculum. The cervix was dilated to about 1 cm. The hysteroscope was inserted. The above findings were noted. Measurements were taken of the uterus and cervix. The uterine length was then entered into the hand piece of the Oralia device. The device was inserted into the intrauterine cavity. The array of the device was expanded. The balloon cuff was inflated. A good seal was achieved. The energy and safety cycles were initiated and completed. The array was collapsed and the instrument was withdrawn after deflating the balloon cuff. Hysteroscope was reinserted. Above findings were noted. The hysteroscope was removed. The patient tolerated the procedure well. The speculum and tenaculum were removed. She was taken to recovery in stable condition. Sponge lap and needle counts were correct x2. Estimated Blood Loss 15 Complications No immediate complications Condition stable Disposition PACU
--- NOTE | 2020-09-24 10:06 | WPDANESEPPF ---
Anes - Initial Pre Proc Eval Procedure: Operation Date: 09/24/20 10:30 Proposed Procedures p Hysteroscopy Dilation and Curettage - Kunal Mercedes MD Date/Time: 09/24/20 10:06 Surgeon: Kunal Mercedes MD Pre Op Diagnosis: post menopausal bleeding Patient Data Age: 59 Gender: F Height: 1.65 m Weight: 115 kg Last Vital Signs Temp 98 F 09/24/20 08:34 Pulse 92 09/24/20 08:34 Resp 16 09/24/20 08:34 BP 167/96 H 09/24/20 08:34 Pulse Ox 100 09/24/20 08:34 Allergies Allergy/AdvReac Type Severity Reaction Status Date / Time caffeine Allergy Unknown Anaphylactic Verified 09/24/20 08:31 Shock carvedilol Allergy Unknown Anaphylactic Verified 09/24/20 08:31 Shock pineapple Allergy Unknown Anaphylactic Verified 09/24/20 08:31 Shock strawberry Allergy Unknown Anaphylactic Verified 09/24/20 08:31 Shock Home Medications Medication Instructions Recorded Confirmed Type albuterol sulfate 90 mcg/actuation 1 inhalation INHALATION Q4H 01/10/19 09/24/20 History aerosol inhaler benzonatate 200 mg capsule 200 mg PO TID PRN 01/10/19 09/24/20 History epinephrine 0.3 mg/0.3 mL 0.3 mg IM ONCE PRN 01/10/19 09/24/20 History injection syringe folic acid 1 mg tablet 1 mg PO DAILY 01/10/19 09/24/20 History meloxicam 7.5 mg tablet 7.5 mg PO BID 01/10/19 09/24/20 History metformin 1,000 mg tablet 1,000 mg PO BID 01/10/19 09/24/20 History paroxetine HCl 40 mg tablet 40 mg PO DAILY 01/10/19 09/24/20 History topiramate 25 mg capsule,extended See Rx Instructions .ROUTE .COMPLEX 01/10/19 09/24/20 History release 24 hr tramadol 50 mg tablet 50 mg PO Q6H PRN 01/10/19 09/24/20 History cholecalciferol (vitamin D3) 25 1,000 unit PO DAILY 01/12/19 09/24/20 History mcg (1,000 unit) capsule furosemide 40 mg tablet See Rx Instructions .ROUTE 02/10/19 09/24/20 History .COMPLEX tablet potassium chloride 20 mEq 20 meq PO DAILY #30 tablet 05/17/19 09/24/20 Rx tablet,extended release leflunomide 20 mg tablet 20 mg PO DAILY 10/11/19 09/24/20 History rosuvastatin 20 mg tablet 20 mg PO DAILY 10/11/19 09/24/20 History insulin glargine 100 unit/mL (3 See Rx Instructions .ROUTE .COMPLEX 01/10/20 09/24/20 History mL) subcutaneous pen liraglutide 0.6 mg/0.1 mL (18 mg/3 0.6 mg SUBCUT DAILY 02/08/20 09/24/20 History mL) subcutaneous pen injector nystatin-triamcinolone 100,000 1 applic TOPICAL BID 02/08/20 09/24/20 History unit/g-0.1 % topical cream cyclobenzaprine 10 mg PO TID PRN #10 tablet 05/01/20 09/24/20 Rx spironolactone 25 mg tablet See Rx Instructions .ROUTE 05/01/20 09/24/20 Rx .COMPLEX #60 tablet labetalol 100 mg tablet 100 mg PO Q12H #60 tablet 05/23/20 09/24/20 Rx fluticasone propionate 50 See Rx Instructions .ROUTE 08/02/20 09/24/20 Rx mcg/actuation nasal .COMPLEX #16 ml spray,suspension amlodipine 10 mg PO BID 09/18/20 09/24/20 History ascorbic acid (vitamin C) 1 cap PO DAILY 09/18/20 09/24/20 History fluconazole 1 cap PO PRN 09/18/20 09/24/20 History hydralazine 10 mg PO DAILY 09/18/20 09/24/20 History oxybutynin chloride 15 mg PO BID 09/18/20 09/24/20 History vitamin B complex 1 cap PO DAILY 09/18/20 09/24/20 History Laboratory Tests 09/24/20 09:32 POC Capillary Glucose 332 mg/dl H mg/dl (65-105) Patient hx anesthesia problems: none Family hx anesthesia problems: none PMFSH Past Medical History Medical History (Reviewed 08/14/20 @ 14:18 by Melissa Bhandari, [facility]) Diabetes 1.5, managed as type 2 BERKOWITZ (dyspnea on exertion) Dyslipidemia Edema of both legs Essential hypertension Hypertension Morbid obesity Surgical History Surgical History History of adenoidectomy History of tonsillectomy Family History Family History Mother Hypertension Family history of cardiac disorder Family history of malignant neoplasm of gastrointestinal tract
[2020-09-24] MEDS: BACITRACIN/POLYMYXIN B OINT 15 GM TUBE 1 APPLIC TOPICAL (11:19)
--- NOTE | 2020-09-24 11:35 | W.PM.PROC2 ---
Procedure Note - Detailed Date of Procedure 09/24/20 Pre-op Diagnosis post menopausal bleeding Post-op Diagnosis same ( endometrial polyp) Procedure Performed Hysteroscopy D&C , hysteroscopic polypectomy, Excisional biopsy of the anal canal performed by Dr. Link. Surgeon Kunal Mercedes MD Anesthesia MAC Indications abnormal uterine bleeding Findings endometrial polyp, normal appearing uterine cavity otherwise, a normal vulva, normal vagina and cervix. A mass was found to be prolapsing out of the anus. General surgery was called to evaluate and biopsy. Description of Procedure the patient was taken the operating room. She was prepped and draped in the dorsal lithotomy position after induction of mac anesthesia. A speculum was placed in the vagina. The cervix was grasped with a tenaculum. The cervix was dilated about 1 cm. The hysteroscope was inserted. The intrauterine cavity and endocervix were evaluated. Hysteroscope was withdrawn. A medium-size curette was used to curettage all the surfaces were within the endometrial cavity. the sample was collected on Telfa and sent to pathology. The hysteroscope was reinserted and the above findings were noted. Patient tolerated the procedure well. The speculum and tenaculum were removed. She was taken recovery room in stable condition. Sponge lap and needle counts were correct x2. With insertion of the speculum a mass was noted to prolapse out of the rectum. It was about a 2 x [address] Link was called to address this. An excisional biopsy was performed by Dr. Link. See his procedure note for detail. Estimated Blood Loss 15 Drains No Packing No Pathology yes Complications No immediate complications Condition stable Disposition PACU
[2020-09-24 11:40] VITALS: BP 134/79; PULSE 82; RESP 16; O2SAT 97
[2020-09-24 11:53] LABS: Glucose Point of Care 279 mg/dl (65-105)
[2020-09-24 12:10] VITALS: BP 168/87; PULSE 80; RESP 16; O2SAT 96
[2020-09-24 12:40] VITALS: BP 162/93; PULSE 83; RESP 16; O2SAT 96
[2020-09-24] MEDS: oxyCODONE HCL (*CRX) 5 MG TAB IR PO (13:30)
--- NOTE | 2020-09-24 21:10 | P.OP_ITS ---
Procedure Note - Detailed Date of Procedure 09/24/20 Pre-op Diagnosis Discovery of an anal mass during Gyne surgery. Post-op Diagnosis same (suspected anal tumor.) Procedure Performed Excision of a left sided anal mass Surgeon Oscar Link MD Granulating Blender none Anesthesia general Indications Discovery of a mass on the left side of the anal canal, Findings A 2.5 by 1.5 cm mass at the left side of the anal canal. Description of Procedure After evaluating the mass in the OR I scrubbed in. We obtained a set of rectal retractors. using the medium retractor I exposed the apparent mass on the Lt. side of the anal canal. I grasped the mass with an Shalonda clamp. I amputated the lesion at it's base with scissors. I then suture ligated the base with a 3-0 un- dyed Vicryl. This seemed to nicely stop any bleeding. I then applied some triple antibiotic to a 4 X 2 cm piece of gel-foam and put this in the anal canal to help with hemostasis. A keri-pad was then applied to the perineum and the patient was transferred to the PACU. Implants none Estimated Blood Loss 15 Urine Output -150.0 Drains No Pathology yes (one piece of gel-foam) Complications None Condition stable Disposition PACU
--- NOTE | 2020-09-25 16:34 | PM.CNGS ---
Assessment and Plan Assessment and plan (1) Mass of anus: Onset Date: Unknown Code(s): K62.89 - Other specified diseases of anus and rectum Status: Acute Assessment and Plan: This was the main reason that I saw the patient. Please see the operative note. The left-sided anal canal wall mass was excised in a suture ligature placed at its base. We will await pathology and then discuss that with the patient and see if anything more will need to be done. I asked Dr. Vitale to have the patient call my office to make an appointment for about 1-2 weeks following this surgical procedure. (2) Morbid obesity: Onset Date: Unknown Code(s): E66.01 - Morbid (severe) obesity due to excess calories Status: Acute Assessment and Plan: Patient is at high risk in view of her age and significant obesity. Will encourage her to lose weight. (3) Hypertension: Onset Date: Unknown Code(s): I10 - Essential (primary) hypertension Status: Acute Assessment and Plan: This puts patient at increased risk for heart attack or stroke. Patient should continue her current medications and continue to follow-up with PCP regarding this. Additional Plan I after consultation with Dr. Vitale we decided to proceed immediately with excision of this anal canal mass which is protruding from the anal opening after his exam. He believes that his permit covered the permission for this and I will discuss the pathology with patient after it returns and see the patient postoperatively. I believe Dr. Vitale feels that the patient previously had a colonoscopy but he was not totally sure regarding this so we will ask her when she comes to the office. History of Present Illness Consult details Consult date: 10/11/20 Requesting physician: Kunal Vitale MD Narrative: This patient is a pleasant morbidly obese 59-year-old black female who was undergoing a gynecologic procedure by Dr. vitale. I was called the operating room 6. At [facility] to examine a mass that protrudes from the anal opening at the time of insertion of a vaginal speculum. Patient was asleep in the Litotomy slightly Trendelenburg position. Dr. guido related that he was seen her for what was suspected to be vaginal bleeding however the patient is wheelchair-bound and may not be able to easily care for her perineum. Therefore, he believes is some possibility that she was also having some rectal bleeding. Pronto performing a intra vaginal exam inserting the speculum he noted a mass that protrude from the anal opening approximately 2 cm in size and then stayed protruded as he finished exam. Therefore, he called me the operating to eczema in this and to consider biopsy. Review of Systems Review of Systems: ROS unobtainable: Yes unobtainable due to endotracheal tube PMFSH Past Medical History Medical History Diabetes 1.5, managed as type 2 BERKOWITZ (dyspnea on exertion) Dyslipidemia Edema of both legs Essential hypertension Hypertension (Unknown) Morbid obesity (Unknown) Surgical History Surgical History History of adenoidectomy History of tonsillectomy Mass of anus (Unknown) 09/24/2020 -Excision of a left sided anal mass Family History Family History Mother Hypertension Family history of cardiac disorder Family history of malignant neoplasm of gastrointestinal tract Family history of arthritis Family history of lupus erythematosus Family history of congestive heart failure Sibling Colon polyp Father Patient's father is Acute myocardial infarction Diabetes mellitus Hypertension Cerebrovascular accident Family history of arthritis Social History Social History Smoking status: Never
== END 2020-09-24 14:04 | disposition home or self-care (01) ==
PROVIDERS: Surgery; PCP Internal Medicine Infectious Disease; Visit Provider Obstetrics & Gynecology
PROC: 0U5B8ZZ Destruction of Endometrium, Via Natural or Artificial Opening Endoscopic (ICD-10-PCS; CPT 58563; principal; 2020-09-24 10:30)
PROC: (CPT 46922; 2020-09-24 10:30)
DX: N95.0 Postmenopausal bleeding (principal); N84.0 Polyp of corpus uteri; K62.0 Anal polyp; I10 Essential (primary) hypertension; E66.01 Morbid (severe) obesity due to excess calories; Z68.41 Body mass index [BMI] 40.0-44.9, adult; E78.5 Hyperlipidemia, unspecified; E13.9 Other specified diabetes mellitus without complications; Z79.4 Long term (current) use of insulin; Z79.51 Long term (current) use of inhaled steroids
CPT/HCPCS: 58558; 46922; 82948; 88304; 88305; A9270; J1100; J2250; J2405; J2704; J3010; J7030; J7120

== ENCOUNTER 2020-11-01 11:57 | Outpatient (CLI) | payer OTHER, SELFPAY ==
[2020-11-01 12:49] LABS: Basophils Percent Auto 0.4 % (0.2-1.2); Eosinophils Absolute Auto 0.1 K/mm3 (0-0.3); Eosinophils Percent Auto 1.6 % (0-4.4); Hematocrit 40.8 % (37.0-47.0); Hemoglobin 13.1 g/dL (12.0-15.0); Immature Granulocyte Absolute 0.04 K/mm3 (0.00-0.031); Immature Granulocyte Percent A 0.5 % (0-0.5); Lymphocytes Absolute Auto 1.75 K/mm3 (0.9-3.2); Mean Corpuscular HGB Conc 32.1 g/dl (32-36); Mean Corpuscular Volume 84.1 fl (80-100); Mean Platelet Volume 10.1 fl (7.4-10.4); Monocytes Absolute Auto 0.4 K/mm3 (0.1-0.6); Monocytes Percent Auto 4.7 % (2.6-8.5); Neutrophils Absolute Auto 5.6 K/mm3 (1.3-6.7); Neutrophils Percent Auto 70.8 % (45.5-73.1); Platelet Count Result 272 k/mm3 (150-375); Red Blood Count 4.85 M/mm3 (4.2-5.4)
[2020-11-01 12:59] LABS: Add Urine Microscopic? YES; Appearance Urine Clear (Clear); Bilirubin Urine Negative (Negative); Blood Urine Negative (Negative); Color Urine Straw (Yellow); Glucose Urine UA 3+ mg/dL (Negative); Ketones Urine Negative (Negative); Leukocyte Esterase Ur Negative LEU/UL (Negative); Mucus Urine Rare /lpf; Nitrate Urine Negative (Negative); Protein Urine 1+ mg/dL (Negative); RBC Urine 0-2 /hpf (0-2); Specific Grav Ur 1.035 (1.001-1.035); Squamous Epithelial Cell Urine Occasional /hpf (Few); Urobilinogen Urine Negative mg/dL (<2.0); WBC Urine 0-3 /hpf
[2020-11-01 13:03] LABS: Alanine Aminotransferase 18 U/L (4-35); Albumin Level 3.8 g/dL (3.5-5.1); Alkaline Phosphatase 182 U/L (38-126); Anion Gap 6 mmol/L (8-16); Aspartate Amino Transferase 19 U/L (14-36); Bilirubin,Total 0.5 mg/dL (0.2-1.3); Blood Urea Nitrogen 12 mg/dL (7-17); CRP 1.9 mg/dL (<1.0); Carbon Dioxide 29 mmol/L (22-30); Chloride 98 mmol/L (98-107); Estimated Glomerular Filt Rate > 60; Glucose 336 mg/dL (65-110); Potassium 3.5 mmol/L (3.4-5.0); Sodium 133 mmol/L (137-145)
[2020-11-01 16:54] LABS: Erythrocyte Sedimentation Rate 25 mm/hr (0-20)
== END 2020-11-01 11:58 | disposition home or self-care (01) ==
PROVIDERS: PCP Internal Medicine Infectious Disease; Visit Provider Internal Medicine Rheumatology
DX: M05.79 Rheumatoid arthritis with rheumatoid factor of multiple sites without organ or systems involvement (principal); Z51.81 Encounter for therapeutic drug level monitoring; Z79.899 Other long term (current) drug therapy
CPT/HCPCS: 36415; 80053; 81001; 85025; 85652; 86140

== ENCOUNTER 2020-11-22 12:46 | Outpatient (CLI) | payer OTHER, SELFPAY ==
--- NOTE | ~2020-11-22 | XR_ITS ---
EXAMINATION: XR knee LT 2V DATE: 11/22/2020 14:10 INDICATION: Rheumatoid arthritis involving multiple joints. TECHNIQUE: 2 views of left knee were obtained. COMPARISON: None. FINDINGS: The knee is flexed on both views, which obscures evaluation of the medial and lateral linda rtments. No fracture. There is at least moderate osteoarthritis of medial and patellofemoral compartm ents and mild osteoarthritis of lateral compartment. There is a small knee joint effusion. IMPRESSION: 1. Moderate left knee osteoarthritis. 2. Small left knee joint effusion. Reviewed, dictated and finalized at location A.
--- NOTE | ~2020-11-22 | XR_ITS ---
EXAMINATION: XR chest 2V DATE: 11/22/2020 14:09 INDICATION: Rheumatoid arthritis involving multiple sites. TECHNIQUE: Frontal and lateral views of the chest were obtained. COMPARISON: None. FINDINGS: The chest demonstrates clear lungs without pneumonia, pleural effusion, or pneumothorax. Th e heart size is normal. IMPRESSION: 1. No acute cardiopulmonary disease. Reviewed, dictated and finalized at location A.
[2020-11-22 13:59] LABS: Alanine Aminotransferase 18 U/L (4-35); Albumin Level 3.8 g/dL (3.5-5.1); Alkaline Phosphatase 156 U/L (38-126); Anion Gap 9 mmol/L (8-16); Aspartate Amino Transferase 21 U/L (14-36); Bilirubin,Total 0.4 mg/dL (0.2-1.3); Blood Urea Nitrogen 10 mg/dL (7-17); Calcium 9.5 mg/dL (8.4-10.2); Carbon Dioxide 30 mmol/L (22-30); Chloride 98 mmol/L (98-107); Cholesterol 206 mg/dL (0-200); Estimated Glomerular Filt Rate > 60; Glucose 184 mg/dL (65-110); HDL Direct 46 mg/dL; Hemoglobin A1C > 14.0 % (<5.7); Potassium 3.6 mmol/L (3.4-5.0); Sodium 137 mmol/L (137-145); Triglycerides 96 mg/dL (<150)
[2020-11-22 14:10] LABS: LDL Cholesterol Direct 129 mg/dL
== END 2020-11-22 12:47 | disposition home or self-care (01) ==
PROVIDERS: PCP Internal Medicine Infectious Disease; Referring Provider Internal Medicine Infectious Disease; Visit Provider Internal Medicine Rheumatology
DX: E11.9 Type 2 diabetes mellitus without complications (principal); Z79.4 Long term (current) use of insulin; M05.79 Rheumatoid arthritis with rheumatoid factor of multiple sites without organ or systems involvement; M46.1 Sacroiliitis, not elsewhere classified; Z79.899 Other long term (current) drug therapy; M17.12 Unilateral primary osteoarthritis, left knee; M25.462 Effusion, left knee
CPT/HCPCS: 36415; 71046; 73560; 80053; 80061; 83036

== ENCOUNTER 2021-01-14 13:47 | Outpatient (RCR) | payer OTHER, SELFPAY ==
[2020-11-27 13:02] LABS: Basophils Percent Auto 0.4 % (0.2-1.2); Eosinophils Absolute Auto 0.1 K/mm3 (0-0.3); Eosinophils Percent Auto 1.8 % (0-4.4); Hematocrit 41.5 % (37.0-47.0); Hemoglobin 13.1 g/dL (12.0-15.0); Immature Granulocyte Absolute 0.03 K/mm3 (0.00-0.031); Immature Granulocyte Percent A 0.4 % (0-0.5); Lymphocytes Absolute Auto 1.63 K/mm3 (0.9-3.2); Lymphocytes Percent Auto 22.3 % (18.3-44.2); Mean Corpuscular HGB Conc 31.6 g/dl (32-36); Mean Corpuscular Hemoglobin 27.9 pg (26-34); Mean Corpuscular Volume 88.5 fl (80-100); Mean Platelet Volume 10.7 fl (7.4-10.4); Monocytes Absolute Auto 0.3 K/mm3 (0.1-0.6); Monocytes Percent Auto 4.7 % (2.6-8.5); Neutrophils Absolute Auto 5.1 K/mm3 (1.3-6.7); Neutrophils Percent Auto 70.4 % (45.5-73.1); Platelet Count Result 254 k/mm3 (150-375); Red Blood Count 4.69 M/mm3 (4.2-5.4); Red Cell Distribution Width 12.2 % (11.5-14.5); White Blood Count 7.3 K/mm3 (4.5-10.0)
[2020-11-27 13:05] LABS: Add Urine Microscopic? YES; Appearance Urine Clear (Clear); Bilirubin Urine Negative (Negative); Blood Urine Negative (Negative); Color Urine Straw (Yellow); Glucose Urine UA 3+ mg/dL (Negative); Ketones Urine Negative (Negative); Leukocyte Esterase Ur 1+ LEU/UL (Negative); Nitrate Urine Negative (Negative); Protein Urine Negative (Negative); RBC Urine 0-2 /hpf (0-2); Specific Grav Ur 1.009 (1.001-1.035); Squamous Epithelial Cell Urine Occasional /hpf (Few); Urobilinogen Urine Negative mg/dL (<2.0); WBC Urine 0-3 /hpf
[2020-11-27 13:18] LABS: Alanine Aminotransferase 18 U/L (4-35); Albumin Level 3.8 g/dL (3.5-5.1); Alkaline Phosphatase 154 U/L (38-126); Anion Gap 9 mmol/L (8-16); Aspartate Amino Transferase 20 U/L (14-36); Bilirubin,Total 0.4 mg/dL (0.2-1.3); Blood Urea Nitrogen 12 mg/dL (7-17); CRP 3.5 mg/dL (<1.0); Calcium 8.6 mg/dL (8.4-10.2); Carbon Dioxide 23 mmol/L (22-30); Chloride 102 mmol/L (98-107); Estimated Glomerular Filt Rate > 60; Glucose 304 mg/dL (65-110); Potassium 3.6 mmol/L (3.4-5.0); Sodium 134 mmol/L (137-145)
[2020-11-27 14:34] LABS: Erythrocyte Sedimentation Rate 29 mm/hr (0-20)
[2020-12-02 02:24] LABS: NIL 0.02 IU/mL; Quantiferon TB Plus, 1T NEGATIVE (NEGATIVE)
[2021-01-14 14:18] LABS: Basophils Percent Auto 0.3 % (0.2-1.2); Eosinophils Absolute Auto 0.1 K/mm3 (0-0.3); Eosinophils Percent Auto 1.6 % (0-4.4); Hematocrit 43.5 % (37.0-47.0); Hemoglobin 13.5 g/dL (12.0-15.0); Immature Granulocyte Absolute 0.04 K/mm3 (0.00-0.031); Immature Granulocyte Percent A 0.5 % (0-0.5); Lymphocytes Absolute Auto 2.18 K/mm3 (0.9-3.2); Lymphocytes Percent Auto 24.7 % (18.3-44.2); Mean Corpuscular Hemoglobin 26.9 pg (26-34); Mean Corpuscular Volume 86.7 fl (80-100); Mean Platelet Volume 10.2 fl (7.4-10.4); Monocytes Absolute Auto 0.4 K/mm3 (0.1-0.6); Monocytes Percent Auto 4.3 % (2.6-8.5); Neutrophils Absolute Auto 6.1 K/mm3 (1.3-6.7); Neutrophils Percent Auto 68.6 % (45.5-73.1); Platelet Count Result 250 k/mm3 (150-375); Red Blood Count 5.02 M/mm3 (4.2-5.4); Red Cell Distribution Width 11.9 % (11.5-14.5); White Blood Count 8.8 K/mm3 (4.5-10.0)
[2021-01-14 14:33] LABS: Alanine Aminotransferase 15 U/L (4-35); Alkaline Phosphatase 184 U/L (38-126); Anion Gap 7 mmol/L (8-16); Aspartate Amino Transferase 17 U/L (14-36); Bilirubin,Total 0.4 mg/dL (0.2-1.3); Blood Urea Nitrogen 18 mg/dL (7-17); CRP 2.8 mg/dL (<1.0); Calcium 9.2 mg/dL (8.4-10.2); Carbon Dioxide 27 mmol/L (22-30); Chloride 94 mmol/L (98-107); Estimated Glomerular Filt Rate > 60; Glucose 363 mg/dL (65-110); Sodium 128 mmol/L (137-145)
[2021-01-14 14:38] LABS: Add Urine Microscopic? YES; Appearance Urine Clear (Clear); Bilirubin Urine Negative (Negative); Blood Urine Negative (Negative); Color Urine Yellow (Yellow); Glucose Urine UA 3+ mg/dL (Negative); Ketones Urine Negative (Negative); Leukocyte Esterase Ur 1+ LEU/UL (Negative); Mucus Urine Rare /lpf; Nitrate Urine Negative (Negative); Protein Urine Negative (Negative); Specific Grav Ur 1.026 (1.001-1.035); Squamous Epithelial Cell Urine Few /hpf (Few); Urobilinogen Urine Negative mg/dL (<2.0)
[2021-01-14 14:58] LABS: Erythrocyte Sedimentation Rate 20 mm/hr (0-20)
== END 2021-02-25 23:59 | disposition home or self-care (01) ==
LOC: ANHLAB 13:47
PROVIDERS: PCP Internal Medicine Infectious Disease; Visit Provider Internal Medicine Rheumatology
DX: M05.79 Rheumatoid arthritis with rheumatoid factor of multiple sites without organ or systems involvement (principal); M46.1 Sacroiliitis, not elsewhere classified; Z79.899 Other long term (current) drug therapy
CPT/HCPCS: 36415; 80053; 81001; 85025; 85652; 86140; 86480

== ENCOUNTER 2021-02-06 12:43 | Observation (INO) | payer OTHER, SELFPAY ==
--- NOTE | ~2021-02-06 | CT_ITS ---
EXAMINATION: CT hip LT wo con DATE: 02/06/2021 15:37 INDICATION: [place] a pop. Unable to ambulate. TECHNIQUE: Computed tomography (CT) of the pelvis was performed without intravenous contrast. Automat ed exposure control and iterative reconstruction technique were employed.The dose-length product was 784.33 mGy-cm. COMPARISON: Radiograph dated 02/06/2021 FINDINGS: No fracture. Again seen is mild diastases at the pubic symphysis but without surrounding inflammatory stranding to suggest acute injury. Alignment is otherwise normal. Mild bilateral hip osteoarthritis. No hip joint effusions. Moderate bilateral sacroiliitis with erosions and surrounding sclerosis pred ominantly along the iliac sides of the bilateral sacroiliac joints. Enlarged fibroid uterus. Minimal likely physiologic free fluid in the cul-de-sac. No pathologically enlarged pelvic or inguinal lympha denopathy. There is subtle thickening of the distal left iliopsoas with subtle stranding in the immed iately adjacent fat suggesting an avulsion injury. IMPRESSION: 1. Subtle inflammatory stranding surrounding the distal left iliopsoas appears thickened relative to the contralateral right iliopsoas and suggests possible avulsive injury. If clinically indicated this could be more definitively assessed with MRI. 2. No fracture or other acute osseous abnormality. 3. Otherwise symmetric moderate bilateral sacroiliitis likely related to provided history of rheumato id arthritis. 4. Enlarged fibroid uterus. Reviewed, dictated and finalized at location B. E ESCORT IMPRESSION: 1. Subtle inflammatory stranding surrounding the distal left iliopsoas appears thickened relative to the contralateral right iliopsoas and suggests possible a vulsive injury. If clinically indicated this could be more definitively assesse d with MRI. 2. No fracture or other acute osseous abnormality. 3. Otherwise symmetric moderate bilateral sacroiliitis likely related to provid ed history of rheumatoid arthritis. 4. Enlarged fibroid uterus.
--- NOTE | ~2021-02-06 | XR_ITS ---
EXAMINATION: XR hip LT 2V w AP pelvis DATE: 02/06/2021 13:05 INDICATION: Left hip pain after transfer to bed with palpable pop and leg shortening TECHNIQUE: Anteroposterior view of the pelvis and anteroposterior and frog-leg lateral views of the l eft hip were obtained. COMPARISON: None. FINDINGS: Alignment is normal. No fracture. Bilateral hip joint spaces appear relatively preserved. There does however appear to be diastases of the pubic symphysis. Bilateral osteitis condensans ilii. Moderate l ower lumbar spondylosis. IMPRESSION: 1. Pubic symphysis appears widened which is of uncertain chronicity. 2. No evident fracture at the left hip or around the pelvic ring. Reviewed, dictated and finalized at location B. ING MANAGER
--- NOTE | ~2021-02-06 | XR_ITS ---
EXAMINATION: XR knee LT 3V DATE: 02/06/2021 14:31 INDICATION: Left knee pain TECHNIQUE: Three views of the left knee were obtained. COMPARISON: 11/22/2020 FINDINGS: Alignment is normal. No fracture or osteochondral lesion. There is at least moderate osteoa rthritis of the medial and lateral compartments without significant change. A small joint effusion is again seen. Soft tissues are unremarkable. IMPRESSION: 1. Moderate osteoarthritis without acute osseous abnormality. 2. Small knee joint effusion. Reviewed, dictated and finalized at location A. LER'S ASSISTANT
--- NOTE | ~2021-02-06 | MR_ITS ---
EXAMINATION: MR hip LT wo/w con DATE: 02/07/2021 13:30 INDICATION: Likely distal left iliopsoas avulsion injury based upon prior CT presenting with left hip pain and inability to ambulate. TECHNIQUE: Magnetic resonance imaging (MRI) of the left hip was performed without intravenous contra st. Sequences included full-field axial PD-weighted FS FSE, T1-weighted FSE and T1-weighted FS FSE, c oronal of the pelvis with PD-weighted FS FSE, T2-weighted FSE, T1-weighted FSE and small field of vie w of the affected hip with axial PD-weighted FS FSE, sagittal PD-weighted FS FSE, coronal PD-weighte d FS FSE, coronal T2 weighted FSE and postcontrast coronal T1-weighted FS FSE. Additional radial T1-w eighted FGR oriented orthogonal to the acetabular rim were obtained for evaluation of the labrum. COMPARISON: CT dated 02/06/2021 FINDINGS: Bones/labrum/cartilage: Alignment is normal. No fracture, avascular necrosis or pathologic marrow replacing process. Left ac etabular labrum is normal. Mild left hip osteoarthritis with mild partial-thickness cartilage loss re sulting in moderate bilateral sacroiliitis. Severe disc height loss with mild degenerative endplate c hanges at L4-L5. Axial and posterior predominant nonuniform joint space narrowing. Fluid: Small left hip joint effusion. Soft tissues: Normal and symmetric muscle bulk and signal in the pelvis and visualized proximal thighs. High-grade partial tear at the left lesser trochanteric insertion of the left iliopsoas tendon with approximatel y 1 cm proximal retraction. Intact muscular attachment the left iliopsoas with mild feathery edema wh ich could represent reactive edema related to the ligament tear or additional low-grade strain of thi s portion of the muscle. Mild tendinopathy without discrete tear at the contralateral distal right il iopsoas tendon. The bilateral proximal hamstring tendons are normal. Mild tendinopathy without discre te tear at the distal left radius minimus tendon. Remaining gluteal tendons are normal. Enlarged left external iliac chain lymphadenopathy with the 2 largest lymph nodes measuring 1.2 cm and 1.6 cm in m aximal short axis diameters. Mildly prominent but still normal-sized bilateral inguinal and right ext ernal iliac chain nodes. 6 cm uterine fibroid at the fundus. IMPRESSION: 1. Full-thickness left iliopsoas tendon tear at the lesser trochanteric insertion. The muscular attac hment remains intact with severe edema and could not exclude additional low-grade strain. 2. Mild left hip osteoarthritis with small joint effusion. 3. Mild left gluteus minimus tendinopathy without discrete tear. 4. 6 cm uterine fibroid. 5. Moderate bilateral sacroiliitis consistent with given history of rheumatoid arthritis. 6. Nonspecific left external iliac chain lymphadenopathy which is most likely reactive with different ial including less likely lymphoma or metastatic disease in the appropriate clinical setting. Reviewed, dictated and finalized at location A. O CONSULTANT IMPRESSION: 1. Full-thickness left iliopsoas tendon tear at the lesser trochanteric inserti on. The muscular attachment remains intact with severe edema and could not excl ude additional low-grade strain. 2. Mild left hip osteoarthritis with small joint effusion. 3. Mild left gluteus minimus tendinopathy without discrete tear. 4. 6 cm uterine fibroid. 5. Moderate bilateral sacroiliitis consistent with given history of rheumatoid arthritis. 6. Nonspecific left external iliac chain lymphadenopathy which is most likely r eactive with differential including less likely lymphoma or metastatic disease in the appropriate clinical setting.
[2021-02-06 12:43] VITALS: BP 163/96; PULSE 85; RESP 14; TEMP 36.9; O2SAT 100
[2021-02-06] MEDS: MORPHINE SULFATE (*CRX) 4 MG/ML INJ IV PUSH ×2 (13:19→15:43)
[2021-02-06] MEDS: KETOROLAC 30 MG/ML VIAL (*BKC) IV PUSH (14:39)
[2021-02-06 14:42] VITALS: BP 168/103; PULSE 86; RESP 14; O2SAT 100
--- NOTE | 2021-02-06 15:36 | PC.NURSE ---
pt. to ct.
--- NOTE | 2021-02-06 16:30 | PM.IMHP ---
H&P: HPI History of Present Illness Date/Time: 02/06/21 16:30 Chief Complaint: Left leg pain. Narrative: This is a pleasant 60-year-old female with insulin-dependent diabetes, hypertension, sleep apnea, GERD, and rheumatoid arthritis who presented to the emergency department earlier today via EMS from home for evaluation of left leg pain. She is primarily in a motorized wheelchair though she is able to stand and pivot. Last evening while swinging her left leg over her chair to get into bed she felt a ?pop? associated with a severe tearing and throbbing type pain in her left upper thigh radiating to the left knee. She immediately sat back into her chair and stayed there for upwards of 2 hours before the pain improved somewhat that she could get herself into bed. She did not sleep well last night due to the pain and this morning her joint cutter machine came and they decided it would be best to come in for evaluation as she could not even stand on the leg due to the pain. X-ray of the left knee showed a small joint effusion moderate osteoarthritis. Left hip and pelvis x-ray showed widening of the pubic symphysis of autonomic chronicity as subsequent left hip CT showed subtle inflammatory stranding around the distal left ilial psoas suggesting possible avulsive injury. Unfortunately the patient has not been able to ambulate due to severe pain and due to the fact that she lives alone and is essentially wheelchair-bound, she is not safe for discharge and she is being admitted for further evaluation. She denies paresthesias, skin color, temperature changes in the left leg. She has not had any recent falls. No history of venous thromboembolism. Review of Systems Review of Systems: Twelve systems were reviewed. No recent cold or flu symptoms. No sick contacts. She has chronic pain in her left knee for which she sees an orthopedic surgeon somewhere in [place]. According to the patient they have tried all conservative treatments and it sounds as though she may need that knee replaced however her A1c has not been good enough to do that. No chest pain or shortness of breath. She denies nausea, vomiting, and diarrhea. No dysuria. No blurry vision, polydipsia, or polyuria. Except as documented, all other systems were reviewed and are negative. [facility] Past Medical History Medical History (Updated 02/06/21 @ 23:13 by Susan Escobar PA-C) Anxiety Dyslipidemia Essential hypertension Insulin dependent type 2 diabetes mellitus Morbid obesity (Unknown) Obstructive sleep apnea on CPAP Rheumatoid arthritis Surgical History Surgical History (Updated 02/06/21 @ 23:10 by Susan Escobar PA-C) History of adenoidectomy History of arthroscopy of both knees History of hemorrhoidectomy History of hysteroscopy History of tonsillectomy Mass of anus (Unknown) 09/24/2020 -Excision of a left sided anal mass Family History Family History Mother Hypertension Family history of cardiac disorder Family history of malignant neoplasm of gastrointestinal tract Family history of arthritis Family history of lupus erythematosus Family history of congestive heart failure Sibling Colon polyp Father Patient's father is Acute myocardial infarction Diabetes mellitus Hypertension Cerebrovascular accident Family history of arthritis Social History Social History (Updated 02/06/21 @ 23:11 by Susan Escobar PA-C) Social History: [id number]: Wilton Fletcher, sister. Code status: Full code. Smoking status: Never smoker Second hand tobacco smoke exposure: No Alcohol intake: never Substance use: never Substance use type: does not use Additional living arrangements comments: The patient lives in her own home in [place]. Additional occupation/education comments: Retired. Meds Home Medications and Allergies Home Medications Medication Instructions Recorded Conf
--- NOTE | 2021-02-06 16:54 | ED.LOWEXIN ---
HPI - Extremity Injury (Lower) General Chief Complaint: Extremity Injury, Lower Stated Complaint: leg pain Time Seen by Provider: 02/06/21 12:48 Source: patient History of Present Illness HPI Narrative: Patient presents with left hip pain. Ports she was transferring from wheelchair to the bed per usual team felt a sudden pop in her left hip and had severe pain. Symptoms occurred last night she was worried about her house so she laid in bed till a person captain's assistant arrived in the morning who could assist her with walking her doors and transferring her to the ER. Her pain is constant, achy, worse with trying to move her left lower extremity there is no radiation. Reports she is unable to ambulate due to pain. She denied falling down or striking her head she denies any focal numbness or weakness Related Data Home Medications Medication Instructions Recorded Confirmed albuterol sulfate 90 mcg/actuation 1 inhalation INHALATION Q4H 01/10/19 02/06/21 aerosol inhaler benzonatate 200 mg capsule 200 mg PO TID PRN 01/10/19 02/06/21 epinephrine 0.3 mg/0.3 mL 0.3 mg IM ONCE PRN 01/10/19 02/06/21 injection syringe folic acid 1 mg tablet 1 mg PO DAILY 01/10/19 02/06/21 meloxicam 7.5 mg tablet 7.5 mg PO BID 01/10/19 02/06/21 metformin 1,000 mg tablet 1,000 mg PO BID 01/10/19 02/06/21 paroxetine HCl 40 mg tablet 40 mg PO DAILY 01/10/19 02/06/21 topiramate 25 mg capsule,extended See Rx Instructions .ROUTE .COMPLEX 01/10/19 02/06/21 release 24 hr tramadol 50 mg tablet 50 mg PO Q6H PRN 01/10/19 02/06/21 cholecalciferol (vitamin D3) 25 1,000 unit PO DAILY 01/12/19 02/06/21 mcg (1,000 unit) capsule leflunomide 20 mg tablet 20 mg PO DAILY 10/11/19 02/06/21 rosuvastatin 20 mg tablet 20 mg PO DAILY 10/11/19 02/06/21 insulin glargine 100 unit/mL (3 See Rx Instructions .ROUTE .COMPLEX 01/10/20 02/06/21 mL) subcutaneous pen liraglutide 0.6 mg/0.1 mL (18 mg/3 0.6 mg SUBCUT DAILY 02/08/20 02/06/21 mL) subcutaneous pen injector nystatin-triamcinolone 100,000 1 applic TOPICAL BID 02/08/20 02/06/21 unit/g-0.1 % topical cream amlodipine 10 mg PO BID 09/18/20 02/06/21 ascorbic acid (vitamin C) 1 cap PO DAILY 09/18/20 02/06/21 fluconazole 1 cap PO PRN 09/18/20 02/06/21 hydralazine 10 mg PO DAILY 09/18/20 02/06/21 oxybutynin chloride 15 mg PO BID 09/18/20 02/06/21 Allergies Allergy/AdvReac Type Severity Reaction Status Date / Time caffeine Allergy Unknown Anaphylactic Verified 02/06/21 13:17 Shock carvedilol Allergy Unknown Anaphylactic Verified 02/06/21 13:17 Shock pineapple Allergy Unknown Anaphylactic Verified 02/06/21 13:17 Shock strawberry Allergy Unknown Anaphylactic Verified 02/06/21 13:17 Shock Review of Systems Review of Systems: CONSTITUTIONAL: Denies fever, chills, or sweats. EYES: Denies visual changes, redness, or discharge. ENT: Denies rhinorrhea, congestion, sore throat, or otalgia. CARDIOVASCULAR: Denies chest pain, palpitations, or edema. RESPIRATORY: Denies cough or dyspnea. GASTROINTESTINAL: Denies abdominal pain, nausea, vomiting, or diarrhea. GENITOURINARY: Denies dysuria or hematuria. SKIN: Denies rash or itching. MUSCULOSKELETAL: Denies back pain, or myalgia. NEUROLOGIC: Denies headache, numbness, dizziness, or weakness. PSYCHIATRIC: Denies anxiety or depression. All systems reviewed & are unremarkable except as noted in HPI and below PMFSH Past Medical History Medical History Diabetes 1.5, managed as type 2 BERKOWITZ (dyspnea on exertion) Dyslipidemia Edema of both legs Essential hypertension Hypertension (Unknown) Morbid obesity (Unknown) Surgical History Surgical History History of adenoidectomy History of tonsillectomy Mass of anus (Unknown) 09/24/2020 -Excision of a left sided anal mass Family History Family History Mother Hy
[2021-02-06 17:19] VITALS: BP 146/86; PULSE 78; RESP 14; O2SAT 99
[2021-02-06 17:36] LABS: Basophils Percent Auto 0.4 % (0.2-1.2); Eosinophils Absolute Auto 0.3 K/mm3 (0-0.3); Eosinophils Percent Auto 2.9 % (0-4.4); Hematocrit 39.3 % (37.0-47.0); Hemoglobin 12.4 g/dL (12.0-15.0); Immature Granulocyte Absolute 0.03 K/mm3 (0.00-0.031); Immature Granulocyte Percent A 0.4 % (0-0.5); Lymphocytes Percent Auto 25.9 % (18.3-44.2); Mean Corpuscular HGB Conc 31.6 g/dl (32-36); Mean Corpuscular Hemoglobin 27.4 pg (26-34); Mean Corpuscular Volume 86.9 fl (80-100); Monocytes Absolute Auto 0.3 K/mm3 (0.1-0.6); Monocytes Percent Auto 3.9 % (2.6-8.5); Neutrophils Absolute Auto 5.7 K/mm3 (1.3-6.7); Neutrophils Percent Auto 66.5 % (45.5-73.1); Platelet Count Result 237 k/mm3 (150-375); Red Blood Count 4.52 M/mm3 (4.2-5.4); Red Cell Distribution Width 11.9 % (11.5-14.5); White Blood Count 8.5 K/mm3 (4.5-10.0)
[2021-02-06 17:47] LABS: Alanine Aminotransferase 15 U/L (4-35); Albumin Level 3.5 g/dL (3.5-5.1); Alkaline Phosphatase 153 U/L (38-126); Anion Gap 3 mmol/L (8-16); Aspartate Amino Transferase 18 U/L (14-36); Bilirubin,Total 0.4 mg/dL (0.2-1.3); Blood Urea Nitrogen 8 mg/dL (7-17); Calcium 8.8 mg/dL (8.4-10.2); Carbon Dioxide 32 mmol/L (22-30); Chloride 94 mmol/L (98-107); Creatine Kinase 37 U/L (30-135); Estimated Glomerular Filt Rate > 60; Glucose 340 mg/dL (65-110); Potassium 3.9 mmol/L (3.4-5.0); Sodium 129 mmol/L (137-145)
[2021-02-06 17:57] LABS: Glucose Point of Care 317 mg/dl (65-105)
[2021-02-06 20:00] VITALS: BP 141/83; PULSE 78; RESP 14; O2SAT 99
[2021-02-06] MEDS: SODIUM CHLORIDE 0.9% IV 1,000 ML 125 ML IV CONT (21:34)
[2021-02-06 21:51] VITALS: BP 154/90; PULSE 88; RESP 14; O2SAT 97
[2021-02-06 22:10] VITALS: BP 161/74; PULSE 80; RESP 18; TEMP 36.6; O2SAT 100; BMI 45.3
--- NOTE | 2021-02-06 22:17 | ADMGEN ---
This patient, Nicol Ramesh, was admitted to [facility] Surg Room 314-01. Patient/family oriented to hospital policies and general routines including ID bracelet, bed and alarms, visiting hours, pain management, procedures, bathroom and other care routines, personal items, smoking policy, room service/diet, and visiting hours. Information on how to activate the Rapid Response Team has been discussed. Patient/Family are encouraged to report perceived risks to care and to ask questions if they do not understand what they are told or what they should do.
[2021-02-06 23:52] LABS: Hemoglobin A1C 13.5 % (<5.7)
[2021-02-07] VITALS (7 sets, daily range): BP systolic 153–175; BP diastolic 72–96; PULSE 78–103; RESP 18–22; TEMP 36.6–36.7; O2SAT 95–100
[2021-02-07] MEDS: MORPHINE SULFATE (*CRX) 4 MG/ML INJ IV PUSH (03:20)
[2021-02-07 07:54] LABS: Anion Gap 4 mmol/L (8-16); Blood Urea Nitrogen 11 mg/dL (7-17); Calcium 8.8 mg/dL (8.4-10.2); Carbon Dioxide 32 mmol/L (22-30); Chloride 96 mmol/L (98-107); Estimated CRCL calculation 84 ml/min; Estimated Glomerular Filt Rate > 60; Glucose 337 mg/dL (65-110); Magnesium 1.7 mg/dL (1.6-2.3); Sodium 132 mmol/L (137-145)
--- NOTE | 2021-02-07 08:20 | PM.CNOR ---
Assessment and Plan Additional Plan prob iliopsoas rupture MRI pending of hip mobilize be to chair until MRI completed states she will require sedation for MRI claustrophobic- medicine can prescribe DVT per medicine History of Present Illness HPI Consult date: 02/07/21 Chief complaint: Hip Pain Narrative: Pt with left hip and groin pain no hx of trauma pt uses motorized chair secondary to knee and back issues was transfering and felt a pop Hx of RA PMFSH Past Medical History Medical History (Updated 02/06/21 @ 23:13 by Susan Escobar PA-C) Anxiety Dyslipidemia Essential hypertension Insulin dependent type 2 diabetes mellitus Morbid obesity (Unknown) Obstructive sleep apnea on CPAP Rheumatoid arthritis Surgical History Surgical History (Updated 02/06/21 @ 23:10 by Susan Escobar PA-C) History of adenoidectomy History of arthroscopy of both knees History of hemorrhoidectomy History of hysteroscopy History of tonsillectomy Mass of anus (Unknown) 09/24/2020 -Excision of a left sided anal mass Family History Family History Mother Hypertension Family history of cardiac disorder Family history of malignant neoplasm of gastrointestinal tract Family history of arthritis Family history of lupus erythematosus Family history of congestive heart failure Sibling Colon polyp Father Patient's father is Acute myocardial infarction Diabetes mellitus Hypertension Cerebrovascular accident Family history of arthritis Social History Social History (Updated 02/06/21 @ 23:11 by Susan Escobar PA-C) Social History: [id number]: Wilton Fletcher, sister. Code status: Full code. Smoking status: Never smoker Second hand tobacco smoke exposure: No Alcohol intake: never Drinks per week: 1 Substance use: never Substance use type: does not use Additional living arrangements comments: The patient lives in her own home in [place]. Additional occupation/education comments: Retired. Meds Home Medications and Allergies Home Medications Medication Instructions Recorded Confirmed Type albuterol sulfate 90 mcg/actuation 1 inhalation INHALATION Q4H 01/10/19 02/06/21 History aerosol inhaler benzonatate 200 mg capsule 200 mg PO TID PRN 01/10/19 02/06/21 History epinephrine 0.3 mg/0.3 mL 0.3 mg IM ONCE PRN 01/10/19 02/06/21 History injection syringe folic acid 1 mg tablet 1 mg PO DAILY 01/10/19 02/06/21 History meloxicam 7.5 mg tablet 7.5 mg PO BID 01/10/19 02/06/21 History metformin 1,000 mg tablet 1,000 mg PO BID 01/10/19 02/06/21 History paroxetine HCl 40 mg tablet 40 mg PO DAILY 01/10/19 02/06/21 History topiramate 25 mg capsule,extended See Rx Instructions .ROUTE .COMPLEX 01/10/19 02/06/21 History release 24 hr tramadol 50 mg tablet 50 mg PO Q6H PRN 01/10/19 02/06/21 History cholecalciferol (vitamin D3) 25 1,000 unit PO DAILY 01/12/19 02/06/21 History mcg (1,000 unit) capsule potassium chloride 20 mEq 20 meq PO DAILY #30 tablet 05/17/19 02/06/21 Rx tablet,extended release leflunomide 20 mg tablet 20 mg PO DAILY 10/11/19 02/06/21 History rosuvastatin 20 mg tablet 20 mg PO DAILY 10/11/19 02/06/21 History insulin glargine 100 unit/mL (3 See Rx Instructions .ROUTE .COMPLEX 01/10/20 02/06/21 History mL) subcutaneous pen liraglutide 0.6 mg/0.1 mL (18 mg/3 0.6 mg SUBCUT DAILY 02/08/20 02/06/21 History mL) subcutaneous pen injector nystatin-triamcinolone 100,000 1 applic TOPICAL BID 02/08/20 02/06/21 History unit/g-0.1 % topical cream cyclobenzaprine 10 mg PO TID PRN #10 tablet 05/01/20 02/06/21 Rx fluticasone propionate 50 See Rx Instructions .ROUTE 08/02/20 02/06/21 Rx mcg/actuation nasal .COMPLEX #16 ml spray,suspension amlodipine 10 mg PO BID 09/18/20 02/06/21 History ascorbic acid (vitamin C) 1 cap PO DAILY 09/18/20 02/06/21 History fluconazole 1 cap PO PRN 09/18/20 12
[2021-02-07 08:56] LABS: Glucose Point of Care 351 mg/dl (65-105)
[2021-02-07] MEDS: ENOXAPARIN 40 MG/0.4 ML SYRINGE SUB-Q (08:59)
--- NOTE | 2021-02-07 09:09 | PC.NURSE ---
MD Mason office call to clarify MRI orders and weigh bearing status. Awaiting call back.
--- NOTE | 2021-02-07 11:03 | PC.NURSE ---
Informed [facility] pt provider, pt requesting valium per to MRI today.Awaiting orders.
[2021-02-07] MEDS: INSULIN GLARGINE (*BKC) 100 UNITS/ML 35 UNITS SUB-Q (11:07)
[2021-02-07] MEDS: diazePAM (*CRX) 5 MG TABLET PO (11:07)
[2021-02-07] MEDS: amLODIPine BESYLATE 5 MG TABLET 10 MG PO (11:08)
[2021-02-07] MEDS: FOLIC ACID 1 MG TABLET PO (11:08)
[2021-02-07] MEDS: CHOLECALCIFEROL 1,000 UNITS TABLET 1000 UNITS PO (11:08)
[2021-02-07] MEDS: SPIRONOLACTONE 25 MG TABLET 50 MG PO (11:09)
[2021-02-07] MEDS: PARoxetine 20 MG TABLET 40 MG PO (11:09)
[2021-02-07] MEDS: POTASSIUM CHLORIDE 20 MEQ TABLET.ER PO (11:09)
[2021-02-07] MEDS: LEFLUNOMIDE 20 MG TABLET PO (11:09)
[2021-02-07] MEDS: MELOXICAM 7.5 MG TABLET PO ×2 (11:09→16:18)
[2021-02-07] MEDS: ROSUVASTATIN 10 MG TABLET 20 MG PO (11:09)
[2021-02-07] MEDS: LABETALOL HCL 100 MG TABLET BY MOUTH ×2 (11:12→21:43)
[2021-02-07 12:22] LABS: Glucose Point of Care 395 mg/dl (65-105)
--- NOTE | 2021-02-07 12:31 | PC.NURSE ---
Called provider [facility] for sliding scale insulin orders, unable to get through to provider at this time, will call back [phone], bs [phone]. Pt at MRI at this time.
--- NOTE | 2021-02-07 13:42 | PCOTNOTE ---
Attempted to see for evaluation. Pt. still awaiting clarification of WB status from MRI. Will follow up when status confirmed
[2021-02-07] MEDS: ACETAMINOPHEN/CODEINE (*CRX) 300/30 MG TABLET 1 TAB PO (13:58)
--- NOTE | 2021-02-07 14:39 | PC.NURSE ---
Called provider [facility] to report elevated bp 175/96, unable to reach provider at this time. Will call back.
--- NOTE | 2021-02-07 15:11 | PM.IMPN ---
Progress Note: A&P Assessment and Plan (1) Pain in left leg: Code(s): M79.605 - Pain in left leg Status: Acute Assessment and Plan: Patient reports feeling a ?pop? in her left upper leg last evening and CT of the left hip showed findings concerning for possible avulsion injury. She is unable to bear weight on that extremity and is not safe to return home as she lives by herself and is essentially wheelchair-bound, and as such she is being admitted for orthopedics consultation as well as PT/OT evaluation. Patient had MRI of her hip which showed Full-thickness left iliopsoas tendon tear at the lesser trochanteric insertion. The muscular attachment remains intact with severe edema and could not exclude additional low-grade strain. Mild left hip osteoarthritis with small joint effusion. Mild left gluteus minimus tendinopathy without discrete tear. Orthopedic surgeon evaluated the patient and recommends weight-bearing as tolerated. Physical and occupational therapy have been ordered but it is now 4:15pm and she will most likely not be evaluated this evening. Will continue with pain medications as needed. When she gets evaluated by therapy and they feel comfortable her being discharged then we will make that happen Continue monitoring. Initiate fall precautions. (2) Insulin dependent type 2 diabetes mellitus: Code(s): E11.9 - Type 2 diabetes mellitus without complications; Z79.4 - senior living (current) use of insulin Status: Acute Assessment and Plan: Her random glucose is over 300 and it looks like her diabetes has historically not been well controlled. Hemoglobin A1c is 13.5 which is not well controlled at all Patient states she takes her Lantus 80 units at night or sometimes 40 in the morning and 40 at night Will start her at Lantus 40 units q.12 and starting her on 10 units of NovoLog with meals on top of sliding scale Will further make adjustments based on her glucose readings. Continue checking glucose a.c. HS, hypoglycemic protocol in place, sliding scale insulin. (3) Hypertension: Onset Date: Unknown Code(s): I10 - Essential (primary) hypertension Status: Acute Assessment and Plan: Her blood pressures were reviewed and they have been running high, likely in some part due to pain. Patient takes amlodipine 10 mg b.i.d. at home, the pharmacy called me on this and max dosing is 10 mg. Will switch to just 10 mg daily Patient also states she takes her hydralazine daily which is normally QID. Will switch this to 10 mg QID. Continue Labetalol 100 mg Q12h BP this afternoon 175/96, could be secondary to pain. Continue monitoring. Make adjustments as needed (4) Obstructive sleep apnea on CPAP: Code(s): G47.33 - Obstructive sleep apnea (adult) (pediatric); Z99.89 - Dependence on other enabling machines and devices Status: Acute Assessment and Plan: CPAP will be provided for the patient to use while hospitalized. (5) Rheumatoid arthritis: Code(s): M06.9 - Rheumatoid arthritis, unspecified Status: Acute Assessment and Plan: No acute issues with regards to her rheumatoid arthritis. (6) Uterine fibroid: Code(s): D25.9 - Leiomyoma of uterus, unspecified Status: Acute Assessment and Plan: Patient found to have a 6 cm uterine fibroid. I feel this needs further follow up and evaluation by a SILICATOR and possible pelvic US and examination as an outpatient. Time Spent With Patient Time with patient: 25 - 35 minutes Subjective Date/time seen: 02/07/21 15:11 Interval history: * Review of Systems Review of Systems: All systems reviewed & are unr
[2021-02-07] MEDS: HYDROcodone/acetaminophen (*CRX) 5-325 MG TABLET 1 TAB PO ×2 (16:21→21:43)
[2021-02-07 17:11] LABS: Glucose Point of Care 375 mg/dl (65-105)
[2021-02-07] MEDS: hydrALAZINE 10 MG TABLET PO ×2 (17:24→21:54)
[2021-02-07] MEDS: INSULIN ASPART (*BKC) 100 UNITS/ML 10 UNITS SUB-Q (17:24)
[2021-02-07] MEDS: INSULIN ASPART (*BKC) 100 UNITS/ML SUB-Q (17:24)
[2021-02-07] MEDS: traMADol HCL (*CRX) 50 MG TABLET PO (17:29)
[2021-02-07] MEDS: INSULIN GLARGINE (*BKC) 100 UNITS/ML 40 UNITS SUB-Q (21:55)
[2021-02-07 23:06] LABS: Glucose Point of Care 179 mg/dl (65-105)
--- NOTE | 2021-02-07 23:22 | PCRCNOTE ---
therapist in code yellow ed
[2021-02-08] VITALS (7 sets, daily range): BP systolic 145–151; BP diastolic 72–88; PULSE 66–87; RESP 16–20; TEMP 36.3–36.8; O2SAT 95–100
[2021-02-08] MEDS: ALBUTEROL SULFATE (*SP) AEROSOL 1 PUFF INHALATION (00:58)
--- NOTE | 2021-02-08 00:58 | PCRCNOTE ---
pt refused MDI treatment stating that she only uses as needed and will call if she needs her medication
[2021-02-08] MEDS: ACETAMINOPHEN/CODEINE (*CRX) 300/30 MG TABLET 1 TAB PO ×2 (03:41→10:36)
[2021-02-08 07:54] LABS: Anion Gap 6 mmol/L (8-16); Blood Urea Nitrogen 13 mg/dL (7-17); Calcium 8.7 mg/dL (8.4-10.2); Carbon Dioxide 30 mmol/L (22-30); Chloride 98 mmol/L (98-107); Estimated CRCL calculation 84 ml/min; Estimated Glomerular Filt Rate > 60; Glucose 113 mg/dL (65-110); Magnesium 1.7 mg/dL (1.6-2.3); Potassium 3.7 mmol/L (3.4-5.0); Sodium 134 mmol/L (137-145)
[2021-02-08 08:13] LABS: Glucose Point of Care 87 mg/dl (65-105)
[2021-02-08] MEDS: hydrALAZINE 10 MG TABLET PO ×4 (08:38→17:01)
[2021-02-08] MEDS: ENOXAPARIN 40 MG/0.4 ML SYRINGE SUB-Q (08:39)
[2021-02-08] MEDS: MELOXICAM 7.5 MG TABLET PO ×2 (08:39→17:01)
[2021-02-08] MEDS: LEFLUNOMIDE 20 MG TABLET PO (08:39)
[2021-02-08] MEDS: ROSUVASTATIN 10 MG TABLET 20 MG PO (08:39)
[2021-02-08] MEDS: LABETALOL HCL 100 MG TABLET BY MOUTH (08:39)
[2021-02-08] MEDS: amLODIPine BESYLATE 5 MG TABLET 10 MG PO (08:39)
[2021-02-08] MEDS: PARoxetine 20 MG TABLET 40 MG PO (08:39)
[2021-02-08] MEDS: CHOLECALCIFEROL 1,000 UNITS TABLET 1000 UNITS PO (08:39)
[2021-02-08] MEDS: FLUTICASONE PROPIONATE 0.05% NA SPR 16 GM BTL (*BKC) 2 SPRAY NASAL (08:40)
[2021-02-08] MEDS: FOLIC ACID 1 MG TABLET PO (08:40)
[2021-02-08] MEDS: POTASSIUM CHLORIDE 20 MEQ TABLET.ER PO (08:40)
[2021-02-08] MEDS: INSULIN GLARGINE (*BKC) 100 UNITS/ML 40 UNITS SUB-Q (08:42)
--- NOTE | 2021-02-08 10:33 | PCRCNOTE ---
Window of time for administration has passed. See next scheduled administration.
[2021-02-08] MEDS: MAGNESIUM OXIDE 400 MG TABLET PO (10:37)
[2021-02-08 11:26] LABS: Glucose Point of Care 181 mg/dl (65-105)
--- NOTE | 2021-02-08 13:43 | PM.DS ---
DS: Admitting Diagnosis Discharge Date 02/08/21 Admitting Diagnosis Hip/leg pain DS: Discharge Diagnosis Discharge Diagnosis (1) Pain in left leg: Code(s): M79.605 - Pain in left leg Status: Acute Assessment and Plan: This is a pleasant 60-year-old female with insulin-dependent diabetes, hypertension, sleep apnea, GERD, and rheumatoid arthritis who presented to the emergency department via EMS from home for evaluation of left leg pain. She is primarily in a motorized wheelchair though she is able to stand and pivot. Last evening prior to arrival, while swinging her left leg over her chair to get into bed she felt a ?pop? associated with a severe tearing and throbbing type pain in her left upper thigh radiating to the left knee. CT of the left hip showed findings concerning for possible avulsion injury. She is unable to bear weight on that extremity and is not safe to return home as she lives by herself and is essentially wheelchair-bound, and as such she is being admitted for orthopedics consultation as well as PT/OT evaluation. Patient had MRI of her hip which showed Full-thickness left iliopsoas tendon tear at the lesser trochanteric insertion. The muscular attachment remains intact with severe edema and could not exclude additional low-grade strain. Mild left hip osteoarthritis with small joint effusion. Mild left gluteus minimus tendinopathy without discrete tear. Orthopedic surgeon evaluated the patient and recommends weight-bearing as tolerated. Physical and occupational therapy were ordered and the patient did not do very well. It was decided that she would be best suited to be discharged to a SNF facility for further PT/OT at this time. She will be discharged on PO pain medications as needed for pain control and to continue PT/OT. Follow up instructions given for the orthopedic surgeon and her primary care provider in 1 week Return to ER warnings given. I spoke with the patient and her two sisters over the phone and they are all in agreement. All questions answered. (2) Insulin dependent type 2 diabetes mellitus: Code(s): E11.9 - Type 2 diabetes mellitus without complications; Z79.4 - termite treater (current) use of insulin Status: Acute Assessment and Plan: Glucose was much better controlled this morning at 118 Hemoglobin A1c is 13.5 which is not well controlled at all Patient states she takes her Lantus 80 units at night or sometimes 40 in the morning and 40 at night Continue Lantus 40 units q.12 and we will continue with SSI upon discharge. Educated the patient, about better glucose control, diet control, and weight loss. Told her that she needs to follow-up with a cooler tender. (3) Hypertension: Onset Date: Unknown Code(s): I10 - Essential (primary) hypertension Status: Acute Assessment and Plan: Her blood pressures were reviewed and they have been running high, likely in some part due to pain. Patient takes amlodipine 10 mg b.i.d. at home, the pharmacy called me on this and max dosing is 10 mg. Will switch to just amlodipine 10 mg daily Patient also states she takes her hydralazine daily which is normally QID. Will switch this to 10 mg QID. Continue Labetalol 100 mg Q12h BP this afternoon 151/72, could be secondary to pain. Continue monitoring. Make adjustments as needed (4) Obstructive sleep apnea on CPAP: Code(s): G47.33 - Obstructive sleep apnea (adult) (pediatric); Z99.89 - Dependence on other enabling machines and devices Status: Acute Assessment and Plan: CPAP will be provided for the patient to use while hospitalized. (5) Rheumatoid arthritis: Code(s): M06.9 - Rheumatoid arthritis, unspecified Status: Acute Assessment a
[2021-02-08] MEDS: BISACODYL 10 MG SUPPOSITORY RECTAL (14:48)
[2021-02-08 14:57] LABS: EDCOVIDSCREEN Negative (Negative)
[2021-02-08 16:54] LABS: Glucose Point of Care 280 mg/dl (65-105)
[2021-02-08] MEDS: INSULIN ASPART (*BKC) 100 UNITS/ML SUB-Q (17:00)
--- NOTE | 2021-02-08 19:03 | PCRCNOTE ---
Window of time for administration has passed. See next scheduled administration.
== END 2021-02-08 19:36 ==
LOC: ANHED 17:03 → ANH3MEDSUR 21:05
PROVIDERS: Physician Assistant; Admitting Provider Internal Medicine; Emergency Provider Emergency Medicine; PCP Internal Medicine Infectious Disease; Visit Provider Physician Assistant
DX: M79.605 Pain in left leg (principal); M25.552 Pain in left hip; E13.9 Other specified diabetes mellitus without complications; R93.89 Abnormal findings on diagnostic imaging of other specified body structures; D25.9 Leiomyoma of uterus, unspecified; E78.5 Hyperlipidemia, unspecified; I10 Essential (primary) hypertension; M06.9 Rheumatoid arthritis, unspecified; K21.9 Gastro-esophageal reflux disease without esophagitis; G47.33 Obstructive sleep apnea (adult) (pediatric); F41.9 Anxiety disorder, unspecified; E66.01 Morbid (severe) obesity due to excess calories; Z68.42 Body mass index [BMI] 45.0-49.9, adult; Z79.51 Long term (current) use of inhaled steroids; Z79.84 Long term (current) use of oral hypoglycemic drugs; Z79.4 Long term (current) use of insulin; Z20.822 Contact with and (suspected) exposure to COVID-19
CPT/HCPCS: 36415; 73502; 73562; 73700; 73723; 80048; 80053; 82550; 82948; 83036; 83735; 84443; 85025; 87426; 96372; 96374; 96375; 96376; 97163; 97165; 99285; A9270; A9577; C9803; G0378; G0379; J1650; J1815; J1885; J2270; J7030

== ENCOUNTER 2021-06-02 15:41 | Outpatient (RCR) | payer OTHER, SELFPAY ==
[2021-03-08 11:41] LABS: Basophils Percent Auto 0.5 % (0.2-1.2); Eosinophils Absolute Auto 0.3 K/mm3 (0-0.3); Eosinophils Percent Auto 3.7 % (0-4.4); Hematocrit 42.5 % (37.0-47.0); Hemoglobin 13.2 g/dL (12.0-15.0); Immature Granulocyte Absolute 0.02 K/mm3 (0.00-0.031); Immature Granulocyte Percent A 0.3 % (0-0.5); Lymphocytes Absolute Auto 1.82 K/mm3 (0.9-3.2); Lymphocytes Percent Auto 23.8 % (18.3-44.2); Mean Corpuscular HGB Conc 31.1 g/dl (32-36); Mean Corpuscular Hemoglobin 27.1 pg (26-34); Mean Corpuscular Volume 87.3 fl (80-100); Monocytes Absolute Auto 0.4 K/mm3 (0.1-0.6); Monocytes Percent Auto 4.7 % (2.6-8.5); Neutrophils Absolute Auto 5.1 K/mm3 (1.3-6.7); Platelet Count Result 214 k/mm3 (150-375); Red Blood Count 4.87 M/mm3 (4.2-5.4); Red Cell Distribution Width 12.6 % (11.5-14.5); White Blood Count 7.7 K/mm3 (4.5-10.0)
[2021-03-08 11:52] LABS: Add Urine Microscopic? YES; Appearance Urine Cloudy (Clear); Bacteria Urine Trace /hpf; Bilirubin Urine Negative (Negative); Blood Urine Negative (Negative); Color Urine Amber (Yellow); Glucose Urine UA 2+ mg/dL (Negative); Ketones Urine Negative (Negative); Leukocyte Esterase Ur Negative LEU/UL (Negative); Mucus Urine Moderate /lpf; Nitrate Urine Negative (Negative); Protein Urine 2+ mg/dL (Negative); RBC Urine 0-2 /hpf (0-2); Specific Grav Ur 1.021 (1.001-1.035); Squamous Epithelial Cell Urine Many /hpf (Few); Urobilinogen Urine Negative mg/dL (<2.0)
[2021-03-08 11:53] LABS: Alanine Aminotransferase 18 U/L (4-35); Alkaline Phosphatase 114 U/L (38-126); Anion Gap 7 mmol/L (8-16); Aspartate Amino Transferase 19 U/L (14-36); Bilirubin,Total 0.6 mg/dL (0.2-1.3); Blood Urea Nitrogen 13 mg/dL (7-17); CRP 1.8 mg/dL (<1.0); Calcium 9.3 mg/dL (8.4-10.2); Carbon Dioxide 32 mmol/L (22-30); Chloride 97 mmol/L (98-107); Estimated Glomerular Filt Rate > 60; Glucose 214 mg/dL (65-110); Potassium 3.7 mmol/L (3.4-5.0); Sodium 136 mmol/L (137-145)
[2021-03-08 14:15] LABS: Erythrocyte Sedimentation Rate 21 mm/hr (0-20)
[2021-06-02 16:21] LABS: Basophils Absolute Auto 0.1 K/mm3 (0.0-0.1); Basophils Percent Auto 0.5 % (0.2-1.2); Eosinophils Absolute Auto 0.2 K/mm3 (0-0.3); Eosinophils Percent Auto 1.5 % (0-4.4); Hematocrit 45.1 % (37.0-47.0); Immature Granulocyte Absolute 0.04 K/mm3 (0.00-0.031); Immature Granulocyte Percent A 0.4 % (0-0.5); Lymphocytes Absolute Auto 2.61 K/mm3 (0.9-3.2); Mean Corpuscular Hemoglobin 26.6 pg (26-34); Mean Corpuscular Volume 85.7 fl (80-100); Mean Platelet Volume 10.3 fl (7.4-10.4); Monocytes Absolute Auto 0.4 K/mm3 (0.1-0.6); Monocytes Percent Auto 4.1 % (2.6-8.5); Neutrophils Absolute Auto 6.4 K/mm3 (1.3-6.7); Neutrophils Percent Auto 66.5 % (45.5-73.1); Platelet Count Result 321 k/mm3 (150-375); Red Blood Count 5.26 M/mm3 (4.2-5.4); Red Cell Distribution Width 12.5 % (11.5-14.5); White Blood Count 9.7 K/mm3 (4.5-10.0)
[2021-06-02 16:27] LABS: Add Urine Microscopic? YES; Appearance Urine Clear (Clear); Bilirubin Urine Negative (Negative); Blood Urine Negative (Negative); Color Urine Straw (Yellow); Glucose Urine UA 2+ mg/dL (Negative); Ketones Urine Negative (Negative); Leukocyte Esterase Ur Negative LEU/UL (Negative); Nitrate Urine Negative (Negative); Protein Urine Negative (Negative); RBC Urine 0-2 /hpf (0-2); Specific Grav Ur 1.009 (1.001-1.035); Squamous Epithelial Cell Urine Few /hpf (Few); Urobilinogen Urine Negative mg/dL (<2.0); WBC Urine 0-3 /hpf
[2021-06-02 16:35] LABS: Alanine Aminotransferase 16 U/L (4-35); Albumin Level 3.9 g/dL (3.5-5.1); Alkaline Phosphatase 242 U/L (38-126); Anion Gap 7 mmol/L (8-16); Aspartate Amino Transferase 25 U/L (14-36); Bilirubin,Total 0.2 mg/dL (0.2-1.3); Blood Urea Nitrogen 19 mg/dL (7-17); CRP 0.6 mg/dL (<1.0); Calcium 8.8 mg/dL (8.4-10.2); Carbon Dioxide 29 mmol/L (22-30); Chloride 97 mmol/L (98-107); Estimated Glomerular Filt Rate > 60; Glucose 310 mg/dL (65-110); Potassium 3.6 mmol/L (3.4-5.0); Sodium 133 mmol/L (137-145)
[2021-06-02 16:55] LABS: Erythrocyte Sedimentation Rate 14 mm/hr (0-20)
[2021-06-04 12:52] LABS: NIL 0.01 IU/mL; Quantiferon TB Plus, 1T NEGATIVE (NEGATIVE); TB1-NIL 0.01 IU/mL
== END 2021-06-06 23:59 | disposition home or self-care (01) ==
LOC: ANHLAB 15:41
PROVIDERS: PCP Internal Medicine Infectious Disease; Visit Provider Internal Medicine Rheumatology
DX: Z51.81 Encounter for therapeutic drug level monitoring (principal); Z11.1 Encounter for screening for respiratory tuberculosis; M05.79 Rheumatoid arthritis with rheumatoid factor of multiple sites without organ or systems involvement; M46.1 Sacroiliitis, not elsewhere classified; Z79.899 Other long term (current) drug therapy
CPT/HCPCS: 36415; 80053; 81001; 85025; 85652; 86140; 86480

== ENCOUNTER 2021-09-25 13:53 | Outpatient (CLI) | payer OTHER, SELFPAY ==
[2021-09-25 14:46] LABS: Basophils Percent Auto 0.5 % (0.2-1.2); Eosinophils Absolute Auto 0.2 K/mm3 (0-0.3); Hematocrit 41.6 % (37.0-47.0); Hemoglobin 12.5 g/dL (12.0-15.0); Immature Granulocyte Absolute 0.04 K/mm3 (0.00-0.031); Immature Granulocyte Percent A 0.5 % (0-0.5); Lymphocytes Absolute Auto 2.53 K/mm3 (0.9-3.2); Mean Corpuscular Hemoglobin 25.5 pg (26-34); Mean Corpuscular Volume 84.7 fl (80-100); Mean Platelet Volume 10.7 fl (7.4-10.4); Monocytes Absolute Auto 0.4 K/mm3 (0.1-0.6); Monocytes Percent Auto 4.7 % (2.6-8.5); Neutrophils Absolute Auto 5.3 K/mm3 (1.3-6.7); Neutrophils Percent Auto 62.3 % (45.5-73.1); Platelet Count Result 272 k/mm3 (150-375); Red Blood Count 4.91 M/mm3 (4.2-5.4); Red Cell Distribution Width 13.2 % (11.5-14.5); White Blood Count 8.4 K/mm3 (4.5-10.0)
[2021-09-25 14:57] LABS: Alanine Aminotransferase 20 U/L (6-35); Albumin Level 4.1 g/dL (3.5-5.1); Alkaline Phosphatase 186 U/L (38-126); Anion Gap 11 mmol/L (8-16); Aspartate Amino Transferase 17 U/L (14-36); Bilirubin,Total 0.3 mg/dL (0.2-1.3); Blood Urea Nitrogen 19 mg/dL (7-17); CRP 0.9 mg/dL (<1.0); Calcium 8.9 mg/dL (8.4-10.2); Carbon Dioxide 29 mmol/L (22-30); Chloride 97 mmol/L (98-107); Cholesterol 232 mg/dL (0-200); Estimated Glomerular Filt Rate > 60; Glucose 284 mg/dL (65-110); HDL Direct 49 mg/dL; Potassium 3.7 mmol/L (3.4-5.0); Sodium 137 mmol/L (137-145); Triglycerides 121 mg/dL (<150)
[2021-09-25 15:05] LABS: Appearance Urine Cloudy (Clear); Bilirubin Urine Negative (Negative); Blood Urine 3+ (Negative); Glucose Urine UA Trace mg/dL (Negative); Ketones Urine Negative (Negative); LDL Cholesterol Direct 121 mg/dL; Leukocyte Esterase Ur Negative LEU/UL (Negative); Nitrate Urine Negative (Negative); Protein Urine Negative (Negative); Specific Grav Ur 1.015 (1.001-1.035); Urobilinogen Urine 0.2 mg/dL (<2.0)
[2021-09-25 15:16] LABS: Bacteria Urine Trace /hpf; RBC Urine >75 /hpf (0-2); Squamous Epithelial Cell Urine Rare /hpf (Few); WBC Urine 0-3 /hpf
[2021-09-25 15:20] LABS: Add Urine Microscopic? YES; Color Urine Light Yellow (Yellow)
[2021-09-25 15:24] LABS: Creatinine Urine 7.6 mg/dL
[2021-09-25 15:28] LABS: MALB Creatinine Ratio 156.6 mg/g (0-30); Microalbumin Urine Random 11.9 mg/L (0-16.7)
[2021-09-25 18:15] LABS: Hemoglobin A1C 9.8 % (<5.7)
[2021-09-25 18:29] LABS: Erythrocyte Sedimentation Rate 14 mm/hr (0-20)
[2021-09-25 18:48] LABS: Vitamin D 25 Hydroxy 27.8 ng/mL
== END 2021-09-25 13:54 | disposition home or self-care (01) ==
PROVIDERS: PCP Internal Medicine Infectious Disease; Visit Provider Internal Medicine Rheumatology
DX: E11.9 Type 2 diabetes mellitus without complications (principal); I10 Essential (primary) hypertension; Z79.4 Long term (current) use of insulin; E78.2 Mixed hyperlipidemia; E55.9 Vitamin D deficiency, unspecified; G47.33 Obstructive sleep apnea (adult) (pediatric); M05.79 Rheumatoid arthritis with rheumatoid factor of multiple sites without organ or systems involvement; M46.1 Sacroiliitis, not elsewhere classified; Z51.81 Encounter for therapeutic drug level monitoring; Z79.899 Other long term (current) drug therapy
CPT/HCPCS: 36415; 80053; 80061; 81001; 82043; 82306; 82607; 83036; 84443; 85025; 85652; 86140

== ENCOUNTER 2021-10-24 00:23 | Day surgery (SDC) | payer OTHER, SELFPAY ==
[2021-10-10 10:39] VITALS: BMI 32.8
[2021-10-24 06:25] VITALS: BP 189/103; PULSE 101; RESP 20; TEMP 36.6; O2SAT 100; BMI 40.4
[2021-10-24 06:54] LABS: Glucose Point of Care 198 mg/dl (65-105)
[2021-10-24] MEDS: LACTATED RINGERS 1,000 ML 150 ML IV CONT (07:21)
--- NOTE | 2021-10-24 07:42 | WPDANESEPPF ---
Anes - Initial Pre Proc Eval Procedure: Operation Date: 10/24/21 08:00 Proposed Procedures p Screening Colonoscopy - Rory Gagnon MD Date/Time: 10/24/21 07:42 Surgeon: Rory Gagnon MD Pre Op Diagnosis: hx of colon polyps Patient Data Age: 61 Gender: F Height: 1.68 m Weight: 113.5 kg Last Vital Signs Temp 97.9 F 10/24/21 06:25 Pulse 101 H 10/24/21 06:25 Resp 101 H 10/24/21 06:25 BP 189/103 H 10/24/21 06:25 Pulse Ox 100 10/24/21 06:25 O2 Del Method Room Air 10/24/21 06:25 Allergies Allergy/AdvReac Type Severity Reaction Status Date / Time caffeine Allergy Unknown Anaphylactic Verified 10/24/21 06:54 Shock carvedilol Allergy Unknown Anaphylactic Verified 10/24/21 06:54 Shock pineapple Allergy Unknown Anaphylactic Verified 10/24/21 06:54 Shock strawberry Allergy Unknown Anaphylactic Verified 10/24/21 06:54 Shock Home Medications Medication Instructions Recorded Confirmed Type albuterol sulfate 90 mcg/actuation 1 inhalation inhalation PRN PRN 01/10/19 10/24/21 History aerosol inhaler (Ventolin HFA) Shortness Of Breath Or Wheezing benzonatate 200 mg capsule 200 mg PO TID PRN Cough 01/10/19 10/24/21 History epinephrine 0.3 mg/0.3 mL 0.3 mg IM ONCE PRN Anaphylaxis 01/10/19 10/24/21 History injection syringe (Symjepi) meloxicam 7.5 mg tablet 7.5 mg PO BID 01/10/19 10/24/21 History metformin 1,000 mg tablet 1,000 mg PO BID 01/10/19 10/24/21 History paroxetine HCl 40 mg tablet 40 mg PO DAILY 01/10/19 10/24/21 History topiramate 25 mg capsule,extended 75 mg PO HS 01/10/19 10/24/21 History release 24 hr cholecalciferol (vitamin D3) 25 1,000 unit PO DAILY 01/12/19 10/24/21 History mcg (1,000 unit) capsule leflunomide 20 mg tablet 20 mg PO DAILY 10/11/19 10/24/21 History rosuvastatin 20 mg tablet 20 mg PO DAILY 10/11/19 10/24/21 History nystatin-triamcinolone 100,000 1 applic topical BID 02/08/20 10/24/21 History unit/g-0.1 % topical cream cyclobenzaprine 10 mg tablet 10 mg PO TID PRN muscle spasm #10 05/01/20 10/24/21 Rx tabs fluticasone propionate 50 See Rx Instructions .Route 08/02/20 10/24/21 Rx mcg/actuation nasal .COMPLEX #16 mL spray,suspension labetalol 100 mg tablet See Rx Instructions .Route 11/08/20 10/24/21 Rx .COMPLEX #60 tabs topiramate 25 mg capsule,extended 25 mg PO DAILY 02/07/21 10/24/21 History release 24 hr amlodipine 10 mg tablet 10 mg PO DAILY #30 tabs 02/08/21 10/24/21 Rx insulin aspart U-100 100 unit/mL 4 - 8 unit subcut TIDWM 30 days 02/08/21 10/24/21 Rx subcutaneous solution (Novolog #10 mL U-100 Insulin aspart) oxybutynin chloride 15 mg 15 mg PO DAILY #30 tabs 02/08/21 10/24/21 Rx tablet,extended release 24 hr spironolactone 25 mg tablet 25 mg PO DAILY #30 tabs 02/12/21 10/24/21 Rx dulaglutide 1.5 mg/0.5 mL 1.5 mg subcut WEEKLY 05/14/21 10/24/21 History subcutaneous pen injector (Trulicity) etanercept 25 mg/0.5 mL 25 mg subcut WEEKLY 05/14/21 10/24/21 History subcutaneous solution (Enbrel) hydralazine 25 mg tablet 50 mg PO BID 10/10/21 10/24/21 History insulin glargine 100 unit/mL 80 unit subcut HS 10/10/21 10/24/21 History subcutaneous solution (Lantus U-100 Insulin) pregabalin 75 mg capsule 75 mg PO BID 10/10/21 10/24/21 History peg 3350-electrolytes 236 240 ml PO Q10M #4,000 mL 10/13/21 10/24/21 Rx gram-22.74 gram-6.74 gram-5.86 gram solution (Golytely) Laboratory Tests 10/24/21 06:51 POC Capillary Glucose 198 mg/dl H mg/dl (65-105) Patient hx anesthesia problems: none Family hx anesthesia problems: none Results Review: All pre-operative results and documents have been reviewed as part of the pre-operative evaluation. [facility] Past Medical History Medical History Adenomatous colon polyp Anxiety Dyslipidemia Essential hypertension Insulin dependent type 2 diabetes rosalina
--- NOTE | 2021-10-24 07:49 | PM.HPGS ---
History of Present Illness History of Present Illness Consent: Risks, benefits, and alternatives have been discussed and questions answered. Patient agrees to proceed with procedure. Chief complaint: hx of colon polyps Narrative: Nicol Ramesh is a 61 year old female with colon polyps 3 years ago Review of Systems Constitutional: Constitutional: Denies headache(s) and Denies weakness Eyes: Eyes: Denies blurry vision ENT: Reports Normal hearing present, Denies headache(s) and Denies neck pain Cardiovascular: Cardiovascular: Denies chest pain and Denies dyspnea Respiratory: Respiratory: Denies dyspnea Gastrointestinal: Gastrointestinal: Reports no additional gastrointestinal complaints Genitourinary: Genitourinary: Denies dysuria Musculoskeletal: Musculoskeletal: Denies neck pain Integumentary/Breasts: Skin/Breast: Denies dry skin Neurologic: Reports Normal hearing present, Denies headache(s) and Denies weakness Psychiatric: Psychiatric: Denies anxiety Endocrine: Endocrine: Denies change in body appearance Hematologic/Lymphatic: Hematologic/Lymphatic: Denies easy bleeding Allergic/Immunologic: Allergic/Immunologic: Denies urticaria PMFSH Past Medical History Medical History Adenomatous colon polyp Anxiety Dyslipidemia Essential hypertension Insulin dependent type 2 diabetes mellitus Morbid obesity (Unknown) Obstructive sleep apnea on CPAP Rheumatoid arthritis Surgical History Surgical History History of adenoidectomy History of arthroscopy of both knees History of hemorrhoidectomy History of hysteroscopy History of tonsillectomy Mass of anus (Unknown) 09/24/2020 -Excision of a left sided anal mass Family History Family History Mother Hypertension Family history of cardiac disorder Family history of malignant neoplasm of gastrointestinal tract Family history of arthritis Family history of lupus erythematosus Family history of congestive heart failure Sibling Colon polyp Father Patient's father is Acute myocardial infarction Diabetes mellitus Hypertension Cerebrovascular accident Family history of arthritis Social History Social History Social History: [id number]: Wilton Fletcher, sister. Code status: Full code. Smoking status: Never smoker Second hand tobacco smoke exposure: No Alcohol intake: never Drinks per week: 1 Substance use: never Substance use type: does not use Living arrangements: alone Additional living arrangements comments: Caregiver visits Additional occupation/education comments: Retired. Spiritual care concerns: No Meds Home Medications and Allergies Home Medications Medication Instructions Recorded Confirmed Type albuterol sulfate 90 mcg/actuation 1 inhalation inhalation PRN PRN 01/10/19 10/24/21 History aerosol inhaler (Ventolin HFA) Shortness Of Breath Or Wheezing benzonatate 200 mg capsule 200 mg PO TID PRN Cough 01/10/19 10/24/21 History epinephrine 0.3 mg/0.3 mL 0.3 mg IM ONCE PRN Anaphylaxis 01/10/19 10/24/21 History injection syringe (Symjepi) meloxicam 7.5 mg tablet 7.5 mg PO BID 01/10/19 10/24/21 History metformin 1,000 mg tablet 1,000 mg PO BID 01/10/19 10/24/21 History paroxetine HCl 40 mg tablet 40 mg PO DAILY 01/10/19 10/24/21 History topiramate 25 mg capsule,extended 75 mg PO HS 01/10/19 10/24/21 History release 24 hr cholecalciferol (vitamin D3) 25 1,000 unit PO DAILY 01/12/19 10/24/21 History mcg (1,000 unit) capsule leflunomide 20 mg tablet 20 mg PO DAILY 10/11/19 10/24/21 History rosuvastatin 20 mg tablet 20 mg PO DAILY 10/11/19 10/24/21 History nystatin-triamcinolone 100,000 1 applic topical BID 02/08/20 10/24/21 History unit/g-0.1 % topical cream cycl
[2021-10-24 08:14] VITALS: BP 154/89; PULSE 100; RESP 23; O2SAT 23
[2021-10-24 08:24] VITALS: BP 160/92; PULSE 96; RESP 22; O2SAT 22
[2021-10-24 08:34] VITALS: BP 160/102; PULSE 96; RESP 20; O2SAT 20
[2021-10-24 09:06] LABS: Glucose Point of Care 182 mg/dl (65-105)
== END 2021-10-24 09:09 | disposition home or self-care (01) ==
PROVIDERS: PCP Internal Medicine Infectious Disease; Visit Provider Internal Medicine Gastroenterology
PROC: 0DJD8ZZ Inspection of Lower Intestinal Tract, Via Natural or Artificial Opening Endoscopic (ICD-10-PCS; CPT 45378; principal; 2021-10-24 08:00)
DX: Z12.11 Encounter for screening for malignant neoplasm of colon (principal); D12.3 Benign neoplasm of transverse colon; D12.4 Benign neoplasm of descending colon; E78.5 Hyperlipidemia, unspecified; I10 Essential (primary) hypertension; E11.9 Type 2 diabetes mellitus without complications; Z79.4 Long term (current) use of insulin; G47.33 Obstructive sleep apnea (adult) (pediatric); E66.01 Morbid (severe) obesity due to excess calories; Z68.41 Body mass index [BMI] 40.0-44.9, adult; M06.9 Rheumatoid arthritis, unspecified; K64.8 Other hemorrhoids; K62.89 Other specified diseases of anus and rectum; K57.30 Diverticulosis of large intestine without perforation or abscess without bleeding
CPT/HCPCS: 45385; 45380; 82948; 88305; J2704; J7120

== ENCOUNTER 2021-11-14 13:08 | Outpatient (CLI) | payer OTHER, SELFPAY ==
--- NOTE | ~2021-11-14 | XR_ITS ---
EXAMINATION: XR chest 2V DATE: 11/14/2021 14:03 INDICATION: Rheumatoid arthritis. Long-term medicine use. TECHNIQUE: Frontal and lateral views of the chest were obtained. COMPARISON: Chest 2 views 11/22/2020 FINDINGS: Sensitivity is decreased by obesity. The chest demonstrates clear lungs without pneumonia, pleural effusion, or pneumothorax. The heart size is normal. IMPRESSION: 1. No acute cardiopulmonary disease. Reviewed, dictated and finalized at location A.
[2021-11-14 14:14] LABS: Appearance Urine Clear (Clear); Bilirubin Urine Negative (Negative); Blood Urine Negative (Negative); Color Urine Yellow (Yellow); Glucose Urine UA 3+ mg/dL (Negative); Ketones Urine Negative (Negative); Leukocyte Esterase Ur Negative LEU/UL (Negative); Nitrate Urine Negative (Negative); Protein Urine Negative (Negative); Specific Grav Ur >= 1.030 (1.001-1.035); Urobilinogen Urine 0.2 mg/dL (<2.0); pH Urine 5.5 (5.0-9.0)
[2021-11-14 14:15] LABS: Basophils Percent Auto 0.4 % (0.2-1.2); Eosinophils Absolute Auto 0.2 K/mm3 (0-0.3); Eosinophils Percent Auto 1.9 % (0-4.4); Hematocrit 39.3 % (37.0-47.0); Hemoglobin 12.1 g/dL (12.0-15.0); Immature Granulocyte Absolute 0.05 K/mm3 (0.00-0.031); Immature Granulocyte Percent A 0.5 % (0-0.5); Lymphocytes Percent Auto 25.5 % (18.3-44.2); Mean Corpuscular HGB Conc 30.8 g/dl (32-36); Mean Corpuscular Volume 84.5 fl (80-100); Mean Platelet Volume 11.4 fl (7.4-10.4); Monocytes Absolute Auto 0.4 K/mm3 (0.1-0.6); Monocytes Percent Auto 4.3 % (2.6-8.5); Neutrophils Absolute Auto 6.3 K/mm3 (1.3-6.7); Neutrophils Percent Auto 67.4 % (45.5-73.1); Platelet Count Result 191 k/mm3 (150-375); Red Blood Count 4.65 M/mm3 (4.2-5.4); Red Cell Distribution Width 13.8 % (11.5-14.5); White Blood Count 9.4 K/mm3 (4.5-10.0)
[2021-11-14 14:27] LABS: Mucus Urine Rare /lpf; RBC Urine 0-2 /hpf (0-2); Squamous Epithelial Cell Urine Occasional /hpf (Few)
[2021-11-14 14:33] LABS: Add Urine Microscopic? YES
[2021-11-14 14:37] LABS: Alanine Aminotransferase 21 U/L (6-35); Albumin Level 3.3 g/dL (3.5-5.1); Alkaline Phosphatase 181 U/L (38-126); Anion Gap 9 mmol/L (8-16); Aspartate Amino Transferase 17 U/L (14-36); Bilirubin,Total 0.3 mg/dL (0.2-1.3); Blood Urea Nitrogen 15 mg/dL (7-17); Calcium 8.7 mg/dL (8.4-10.2); Carbon Dioxide 23 mmol/L (22-30); Chloride 101 mmol/L (98-107); Estimated Glomerular Filt Rate > 60; Glucose 311 mg/dL (65-110); Potassium 3.4 mmol/L (3.4-5.0); Sodium 133 mmol/L (137-145)
[2021-11-14 17:21] LABS: Erythrocyte Sedimentation Rate 29 mm/hr (0-20)
[2021-11-18 14:11] LABS: NIL 0.02 IU/mL; Quantiferon TB Plus, 1T NEGATIVE (NEGATIVE)
== END 2021-11-14 13:09 | disposition home or self-care (01) ==
PROVIDERS: PCP Internal Medicine Infectious Disease; Referring Provider Internal Medicine Infectious Disease; Visit Provider Internal Medicine Infectious Disease
DX: Z51.81 Encounter for therapeutic drug level monitoring (principal); M05.79 Rheumatoid arthritis with rheumatoid factor of multiple sites without organ or systems involvement; M46.1 Sacroiliitis, not elsewhere classified; Z79.899 Other long term (current) drug therapy
CPT/HCPCS: 36415; 71046; 80053; 81001; 85025; 85652; 86140; 86480

== ENCOUNTER 2022-01-12 07:10 | Outpatient (CLI) | payer OTHER, SELFPAY ==
--- NOTE | ~2022-01-12 | NM_ITS ---
EXAMINATION: NM barb stress w perfusion DATE: 01/12/2022 11:37 INDICATION: Hyperlipidemia. TECHNIQUE: Rest images were obtained following intravenous administration of 10.5 mCi Tc99m tetrofosm in (Myoview). The patient was infused intravenously with Lexiscan (regadenoson). Then, 31.9 mCi Tc99m tetrofosmin (Myoview) was administered intravenously, and stress images were obtained. Data was aashish nstructed into short axis and horizontal and vertical long axis SPECT images. Gated SPECT images were also obtained. COMPARISON: None. FINDINGS: Breast attenuation is noted. There is no definite reversible or fixed perfusion abnormality to suggest ischemia or infarction. There is no segmental wall motion abnormality. Left ventricular ejection fraction measures 48%. IMPRESSION: 1. No definite ischemia or infarct. Breast attenuation decreases sensitivity and specificity in the a nterior and lateral lyons. 2. Left ventricular ejection fraction measuring 48%. Reviewed, dictated and finalized at location A. /PARAMEDIC IMPRESSION: 1. No definite ischemia or infarct. Breast attenuation decreases sensitivity an d specificity in the anterior and lateral lyons. 2. Left ventricular ejection fraction measuring 48%.
--- NOTE | 2022-01-12 08:50 | EST_ITS ---
Patient Info Name: Nicol Ramesh Age: 61 years : 1960 Gender: Female Ht: 65 in Wt: 210 lbs BSA: 2.13 m2 Exam Date: 01/12/2022 9:20 AM Exam Location: [facility] Stress Patient Status: Outpatient Admit Date: 01/12/2022 Staff Ordering Physician: Brady Jimenez DO Attending Provider: Brady Jimenez DO Exercise Technologist: Esther Batres RDCS Exercise Physician: Brady Jimenez DO Exam Type: CA stress barb w NM Study Info Indications R07.9 - Chest pain, unspecified A regadenoson stress test was performed. Summary 1. 1. Negative lexiscan stress test for ischemic ST changes by ECG criteria. 2. 2. Baseline hypertension. 3. 3. Nuclear scan to follow and will be reported separately. Please correlate with it. 4. 4. Patient informed of the above results. Protocol: Lexiscan Stress ECG Details Stage: REST Duration (min): 1 min : 30 sec HR (bpm): 109 SBP (mmHg): 188 DBP (mmHg): 104 Stage: REST Duration (min): 4 min : 56 sec HR (bpm): 104 SBP (mmHg): 188 DBP (mmHg): 104 Stage: STAGE 1 Duration (min): 1 min : 0 sec HR (bpm): 123 SBP (mmHg): 193 DBP (mmHg): 104 Stage: RECOVERY Duration (min): 1 min : 0 sec HR (bpm): 124 SBP (mmHg): 174 DBP (mmHg): 103 Stage: RECOVERY Duration (min): 2 min : 0 sec HR (bpm): 120 SBP (mmHg): 174 DBP (mmHg): 103 Stage: RECOVERY Duration (min): 3 min : 0 sec HR (bpm): 119 SBP (mmHg): 184 DBP (mmHg): 102 Stage: RECOVERY Duration (min): 3 min : 5 sec HR (bpm): 118 SBP (mmHg): 184 DBP (mmHg): 102 Rest HR: 104 bpm Peak HR: 124 bpm Rest Sys BP: 188 mmHg Peak Sys BP: 193 mmHg Max Pred HR: 157 bpm % Max Pred HR: 79 % Target HR: 133 bpm Max RPP: 23,932 bpm*mmHg Termination Reason: Completed protocol Cardiac Symptoms: Shortness of breath Total Time: 1 min : 0 sec Rest Suarez BP: 104 mmHg Peak Suarez BP: 104 mmHg Total Dose: 0.4 mg Resting ECG Sinus tachycardia, borderline T wave in high lateral leads. Stress ECG No ST changes. Arrhythmias None. Report Signatures
== END 2022-01-12 07:11 | disposition home or self-care (01) ==
PROVIDERS: PCP Internal Medicine Infectious Disease; Visit Provider Internal Medicine Cardiovascular Disease
DX: E78.5 Hyperlipidemia, unspecified (principal); R07.9 Chest pain, unspecified
CPT/HCPCS: 78452; 93017; A9502; J2785